=== PATIENT | male | born 1950 | race Caucasian/White ===

== ENCOUNTER 2016-12-02 19:04 | Inpatient (IN) ==
--- NOTE | 2016-12-02 19:18 | Emergency Department Note ---
Disposition Clinical Impression: Upper respiratory infection, Sepsis Disposition: Admitted As Inpatient Condition: Fair Referrals: Zeny Benitez MD [Primary Care Provider] - Forms: ED Satisfaction Letter Time of Disposition: 20:43 ([facility] obsv) URI/Sore Throat HPI - General Chief Complaint: ED Upper Respiratory Infection Stated Complaint: wet cough and low grade fever Time Seen by Provider: 12/02/16 19:10 Source: patient, EMS Mode of arrival: EMS Limitations: altered mental status, physical limitation (DD) Nursing Notes Reviewed: Yes Vital Signs Reviewed: Yes - History of Present Illness HPI Narrative: Patient sent in from [facility] report was given to us that he has been having fever cough congestion some mild hypoxia he has had a history of recurrent pneumonias in the past patient is unable to provide us with any history at this time due to his underlying health conditions Pt Subjective Complaint: fever, cough, nasal congestion Onset (ago): day(s) (1) Duration: constant, gradually worsening Improves with: nothing Worsens with: nothing If sputum, description: watery Context: sick contacts Associated symptoms: Reports: fever, nasal congestion, cough, shortness of breath. Denies: chills, voice changes, myalgias, diaphoresis, headache, rhinorrhea, sore throat, chest pain, abdominal pain, nausea, vomiting, diarrhea , dysuria Treatments prior to arrival: none - Related Data Home Medications Medication Instructions Recorded Confirmed Albuterol Sulfate [Albuterol 1 puff IH Q6H PRN 05/19/16 12/02/16 Inhaler] Acetaminophen [Tylenol] 650 mg PO Q6HR PRN 06/30/16 12/02/16 Atorvastatin [Lipitor] 20 mg PO HS 06/30/16 12/02/16 Budesonide Neb [Pulmicort Neb] 0.5 mg IH BID 06/30/16 12/02/16 Calcium Carbonate/Magnesium Ox 1 each PO BID 06/30/16 12/02/16 [Oyster Shell Calcium-Magnes Tb] Diphenhydramine HCl [Ez Nite Sleep] 25 mg PO BID PRN 06/30/16 12/02/16 Docusate Sodium [Dok] 100 mg PO BID 06/30/16 12/02/16 Fluticasone Propionate [Flovent 50 mcg IH DAILY 06/30/16 12/02/16 Diskus] Ibuprofen [Motrin] 800 mg PO Q8HR PRN 06/30/16 12/02/16 Loperamide HCl [Imodium A-D] 2 mg PO DAILY 06/30/16 12/02/16 Loratadine [Claritin] 10 mg PO DAILY 06/30/16 12/02/16 Magnesium Hydroxide [Milk of 100 ml PO DAILY 06/30/16 12/02/16 Magnesia] Megestrol Acetate [Megace] 40 mg PO DAILY 06/30/16 12/02/16 Montelukast Sodium [Singulair] 10 mg PO HS 06/30/16 12/02/16 Olopatadine HCl [Pataday] 2.5 ml OP DAILY 06/30/16 12/02/16 Polyethylene Glycol 3350 [Gavilax] 8.5 gm PO DAILY 06/30/16 12/02/16 Allergies Allergy/AdvReac Type Severity Reaction Status Date / Time cephalexin [From Keflex] Allergy Anaphylaxis Verified 08/17/16 19:58 Erythromycin Base Allergy Anaphylaxis Verified 08/17/16 19:58 peanut Allergy Anaphylaxis Verified 08/17/16 19:58 Tetracycline Allergy Anaphylaxis Verified 08/17/16 19:58 Limitations: ROS unobtainable due to patients medical condition (Except provided on face page under history due to condition) URI PMH - Past Medical History Medical history: Reports: arthritis (Osteoporosis), asthma, hyperlipidemia, peripheral artery disease, renal disease (Chronic renal insufficiency), other ( Down syndrome with profound intellectual disability, dementia) Surgical history: Reports: hip replacement (Left hip), orthopedic, other ( Metatarsal repair), other (Left mastoidectomy and tympanoplasty, chronic pain) Psychiatric history: Reports: no psych history - Social History Smoking Status: Never smoker Alcohol use: Reports: none Drug use: Reports: none Physical Exam - General Limitations: altered mental status (DD), physical limitation General appearance: alert, in no apparent distress, other (Presentation is consistent with mild Downs low-set ears) - Head Head exam: atraumatic, normocephalic, normal inspection - Eye Eye exam: Present: normal appearance, PERRL, EOMI - ENT ENT exam: normal exam, normal oropharynx, mucous membranes moist, TM's normal bilaterally, normal external ear exam - Neck Neck exam: Present: normal inspection, full ROM, trachea midline - Chest Chest inspection: Present: normal inspection, symmetric chest wall rise - Respiratory Respiratory exam: Present: normal lung sounds bilaterally, other (rhonci and wheezing failed treatment at the correction) - Cardiovascular Cardiovascular exam: Present: regular rate, normal rhythm, normal heart sounds - Abdominal Exam Abdominal exam: Present: soft, Non-Tender, normal bowel sounds - Expanded Upper Extremity Exam Shoulder exam: Present: normal inspection, full ROM Arm exam: Present: normal inspection, full ROM Elbow exam: Present: normal inspection, full ROM Forearm/Wrist exam: Present: normal inspection, full ROM Hand exam: Present: normal inspection, full ROM Vascular exam: Normal: capillary refill, radial pulse - Expanded Lower Extremity Exam Hip/Pelvis exam: Present: normal inspection, full ROM Upper leg exam: Present: normal inspection, full ROM Knee exam: Present: normal inspection, full ROM Lower leg exam: Present: normal inspection, full ROM Ankle exam: Present: normal inspection, full ROM Foot/toe exam: Present: normal inspection, full ROM Neurovascular/Tendon exam: Present: normal capillary refill, normal fine/light touch. Absent: motor deficit, sensory deficit, tendon deficit - Back Exam Back exam: Present: normal inspection, full ROM. Absent: muscle spasm - Neurological Exam Neurological exam: Present: alert, oriented X3, CN II-XII intact - Psychiatric Psychiatric exam: Present: normal affect, normal mood - Skin Skin exam: Present: warm, dry, intact, normal color Course Course Narrative: Patient was seen and examined patient upon completion of evaluation we started antibiotics on a patient has multiple labs done waiting results of the chest x- ray and labs to determine placement Vital Signs Temperature 99.8 F H 12/02/16 19:06 Pulse Rate 65 12/02/16 19:06 Respiratory Rate 18 12/02/16 19:06 Blood Pressure 154/62 12/02/16 19:06 O2 Sat by Pulse Oximetry 97 12/02/16 19:06 Temperature 99.8 F H 12/02/16 19:09 Pulse Rate 72 12/02/16 19:47 Respiratory Rate 16 12/02/16 19:47 Blood Pressure 106/58 12/02/16 19:47 O2 Sat by Pulse Oximetry 98 12/02/16 19:47 Oxygen Delivery Oxygen Delivery Room Air Upper Respiratory Infection - Lab Data Result diagrams: 12/02/16 19:25 12/02/16 19:25 Lab Results 12/02/16 12/02/16 12/02/16 Range/Units 19:25 19:25 19:25 WBC 8.0 (4.3-11.1) K/mcL RBC 4.18 L (4.19-5.50) M/mcL Hgb 14.7 (12.9-16.9) g/dL Hct 43.2 (37.5-50.1) % MCV 103.3 H (83.0-100.0) fL MCH 35.2 H (28.0-33.3) pg MCHC 34.0 (31.6-35.5) g/dL RDW 14.9 H (11.5-14.5) % Plt Count 162 (140-400) K/mcL MPV 10.1 (9.4-12.4) fL Immature Gran % 0.6 (0-4) % Seg Neutrophils % 75.3 % Lymphocytes % 10.3 % Monocytes % 12.9 % Eosinophils % 0.3 % Basophils % 0.6 % Neutrophils # 6.0 (1.6-8.9) K/mcL Lymphocytes # 0.8 (0.6-4.6) K/mcL Monocytes # 1.0 (0.0-1.3) K/mcL Eosinophils # 0.0 (0.0-0.6) K/mcL Basophils # 0.1 (0.0-0.2) K/mcL PT 12.3 H (9.4-12.1) Seconds INR 1.1 APTT 26.5 (26.0-36.0) Seconds VBG Lactic Acid (0.5-2.2) mmol/L Sodium 140 (136-145) mEq/L Potassium 4.2 (3.5-4.5) mEq/L Chloride 100 (98-109) mEq/L Carbon Dioxide 27 (19-29) mEq/L BUN 18 (8-26) mg/dL Creatinine 1.49 H (0.72-1.25) mg/dL Est GFR ( Amer) 57 L (> 60) Est GFR (Non-Af Amer) 47 L (> 60) BUN/Creatinine Ratio 12 (6-26) Glucose 100 H (70-99) mg/dL Calculated Osmolality 292 (280-300) Calcium 8.9 (8.6-10.8) mg/dL B-Natriuretic Peptide (0-100) pg/mL 12/02/16 12/02/16 Range/Units 19:25 19:25 WBC (4.3-11.1) K/mcL RBC (4.19-5.50) M/mcL Hgb (12.9-16.9) g/dL Hct (37.5-50.1) % MCV (83.0-100.0) fL MCH (28.0-33.3) pg MCHC (31.6-35.5) g/dL RDW (11.5-14.5) % Plt Count (140-400) K/mcL MPV (9.4-12.4) fL Immature Gran % (0-4) % Seg Neutrophils % % Lymphocytes % % Monocytes % % Eosinophils % % Basophils % % Neutrophils # (1.6-8.9) K/mcL Lymphocytes # (0.6-4.6) K/mcL Monocytes # (0.0-1.3) K/mcL Eosinophils # (0.0-0.6) K/mcL Basophils # (0.0-0.2) K/mcL PT (9.4-12.1) Seconds INR APTT (26.0-36.0) Seconds VBG Lactic Acid 3.6 H (0.5-2.2) mmol/L Sodium (136-145) mEq/L Potassium (3.5-4.5) mEq/L Chloride (98-109) mEq/L Carbon Dioxide (19-29) mEq/L BUN (8-26) mg/dL Creatinine (0.72-1.25) mg/dL Est GFR ( Amer) (> 60) Est GFR (Non-Af Amer) (> 60) BUN/Creatinine Ratio (6-26) Glucose (70-99) mg/dL Calculated Osmolality (280-300) Calcium (8.6-10.8) mg/dL B-Natriuretic Peptide 19 (0-100) pg/mL Critical Care Time Critical Care Time: No
[2016-12-02] MEDS ORDERED: Levofloxacin 750 MG/150 ML 750 MG/150 ML BAG IVPB STA (19:23)
[2016-12-02 19:35] LABS: Basophils # 0.1 K/mcL (0.0-0.2); Basophils % 0.6 %; Eosinophils % 0.3 %; Hematocrit 43.2 % (37.5-50.1); Hemoglobin 14.7 g/dL (12.9-16.9); Immature Granulocytes % 0.6 % (0-4); Lymphocytes # 0.8 K/mcL (0.6-4.6); Lymphocytes % 10.3 %; Mean Corpuscular Hemoglobin 35.2 pg (28.0-33.3); Mean Corpuscular Volume 103.3 fL (83.0-100.0); Mean Platelet Volume 10.1 fL (9.4-12.4); Monocytes % 12.9 %; Platelet Count 162 K/mcL (140-400); Red Blood Count 4.18 M/mcL (4.19-5.50); Red Cell Distribution Width 14.9 % (11.5-14.5); Segmented Neutrophils % 75.3 %
[2016-12-02 19:46] LABS: INR 1.1; Prothrombin Time 12.3 Seconds (9.4-12.1)
[2016-12-02 19:48] LABS: Activated Partial Thrombo Time 26.5 Seconds (26.0-36.0)
[2016-12-02 19:55] LABS: Calcium 8.9 mg/dL (8.6-10.8); Potassium 4.2 mEq/L (3.5-4.5)
[2016-12-02] MEDS ORDERED: Piperacillin/Tazobactam 3.375 GM in D5% in Water (Mini-Bag+) 100 ML IVPB ONE (20:02)
[2016-12-02] MEDS ORDERED: 0.9 % Sodium Chloride 500 ML IVC ONE ×2 (20:31→22:33)
[2016-12-02] MEDS ORDERED: 0.9 % Sodium Chloride 1,000 ML IVC SCH (20:45)
[2016-12-02] MEDS ORDERED: Ibuprofen 800 MG TABLET PO PRN (22:33)
[2016-12-02] MEDS ORDERED: Acetaminophen 325 MG TABLET PO PRN (22:33)
[2016-12-02] MEDS ORDERED: Naloxone 0.4 MG/ML INJ IVP PRN (22:33)
[2016-12-02] MEDS: 0.9 % Sodium Chloride 1,000 ML IVC SCH (23:06)
[2016-12-03] MEDS: Budesonide Neb 0.5 MG/2 ML IH SCH ×3 (01:30→22:52)
[2016-12-03] MEDS: 0.9 % Sodium Chloride 1,000 ML IVC SCH (04:11)
[2016-12-03 05:19] LABS: Basophils % 0.6 %; Eosinophils % 0.4 %; Hematocrit 37.6 % (37.5-50.1); Hemoglobin 12.5 g/dL (12.9-16.9); Immature Granulocytes % 0.6 % (0-4); Lymphocytes % 20.9 %; Mean Corpuscular HGB Conc 33.2 g/dL (31.6-35.5); Mean Corpuscular Hemoglobin 34.7 pg (28.0-33.3); Mean Corpuscular Volume 104.4 fL (83.0-100.0); Mean Platelet Volume 10.3 fL (9.4-12.4); Monocytes # 0.7 K/mcL (0.0-1.3); Monocytes % 13.5 %; Neutrophils # 3.1 K/mcL (1.6-8.9); Platelet Count 145 K/mcL (140-400); Red Cell Distribution Width 14.8 % (11.5-14.5)
[2016-12-03 05:37] LABS: INR 1.2; Prothrombin Time 13.1 Seconds (9.4-12.1)
[2016-12-03 05:40] LABS: Activated Partial Thrombo Time 22.1 Seconds (26.0-36.0)
[2016-12-03 05:44] LABS: Alanine Aminotransferase 9 Units/L (0-55); Albumin 2.2 g/dL (3.5-5.0); Albumin/Globulin Ratio 0.7 (1.1-2.2); Alkaline Phosphatase 66 Units/L (38-126); Aspartate Amino Transferase 20 Units/L (5-34); BUN/Creatinine Ratio 13 (6-26); Bilirubin,Direct 0.2 mg/dL (0.0-0.5); Bilirubin,Indirect 0.2 mg/dL (0.0-1.2); Bilirubin,Total 0.4 mg/dL (0.2-1.2); Blood Urea Nitrogen 15 mg/dL (8-26); Calcium 7.6 mg/dL (8.6-10.8); Carbon Dioxide 22 mEq/L (19-29); Chloride 109 mEq/L (98-109); Globulin 3.3 g/dL (2.4-3.5); Glucose 80 mg/dL (70-99); Osmolality,Calculated 290 (280-300); Potassium 4.2 mEq/L (3.5-4.5); Sodium 140 mEq/L (136-145); Total Protein 5.5 g/dL (6.0-8.3); eGFR For African Americans > 60 (> 60); eGFR For Non-African Americans > 60 (> 60)
[2016-12-03] MEDS: Piperacillin/Tazobactam 3.375 GM in D5% in Water (Mini-Bag+) 100 ML IVPB SCH ×3 (05:55→22:45)
[2016-12-03] MEDS ORDERED: Loratadine 10 MG TABLET PO SCH (09:00)
[2016-12-03] MEDS: Beclomethasone 40mcg MDI IH SCH (09:43)
[2016-12-03] MEDS: Levofloxacin 750 MG/150 ML 750 MG/150 ML BAG IVPB SCH (11:51)
[2016-12-03] MEDS: MOM Conc 10 ML UD.LIQ PO SCH (12:02)
--- NOTE | 2016-12-03 12:30 | Internal Med History&Physical ---
Date of Encounter: 12/03/16 Time of Encounter: 12:15 Assessment and Plan (1) Upper respiratory infection Current visit: Yes Status: Acute Suspect acute bronchitis. He has been started on Zosyn and Levaquin IV. Further workup will be done as needed. Qualifiers: URI type: unspecified URI Qualified Code(s): J06.9 - Acute upper respiratory infection, unspecified (2) Anemia Current visit: Yes Status: Chronic We will monitor CBC. Qualifiers: Anemia type: unspecified type Qualified Code(s): D64.9 - Anemia, unspecified (3) Azotemia Current visit: Yes Status: Acute IV Fluids were ordered and his creatinine has returned to normal range. We will continue to monitor labs. Internal Medicine - H&P: HPI Chief complaint: Cough and hypoxia Admitted From: Home Plans for Post Hospital Care: Home History of present illness: Mr. aPlencia is a 66 year old male who was sent from [facility] after staff reported him having cough and hypoxia. He was evaluated in emergency room with chest x-ray showing no obvious infiltrate. He did have elevated lactic acid and WBC differential showed a slight left shift. He was admitted to [facility] floor for ongoing care needs. His past respiratory history is pertinent for asthma. Smoking history is not known. 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 His last [facility] hospitalization was July 2016 with C. difficile diarrhea. Past Med Surg Social Fam HX - Past Medical History Medical history: arthritis, asthma, hyperlipidemia, peripheral artery disease, renal disease, other Psychiatric history: no psych history - Past Surgical History Surgical History: hip replacement, orthopedic, other, other - Social History Smoking Status: Never smoker Smokeless Tobacco Status: No Alcohol use: none Drug use: none Internal Medicine - H&P: Meds Albuterol Sulfate [Albuterol Inhaler] 1 puff IH Q6H PRN 05/19/16 [History] Acetaminophen [Tylenol] 650 mg PO Q6HR PRN 06/30/16 [History] Atorvastatin [Lipitor] 20 mg PO HS 06/30/16 [History] Budesonide Neb [Pulmicort Neb] 0.5 mg IH BID 06/30/16 [History] Calcium Carbonate/Magnesium Ox [Oyster Shell Calcium-Magnes Tb] 1 each PO BID [History] Diphenhydramine HCl [Ez Nite Sleep] 25 mg PO BID PRN 06/30/16 [History] Docusate Sodium [Dok] 100 mg PO BID 06/30/16 [History] Fluticasone Propionate [Flovent Diskus] 50 mcg IH DAILY 06/30/16 [History] Ibuprofen [Motrin] 800 mg PO Q8HR PRN 06/30/16 [History] Loperamide HCl [Imodium A-D] 2 mg PO DAILY 06/30/16 [History] Loratadine [Claritin] 10 mg PO DAILY 06/30/16 [History] Magnesium Hydroxide [Milk of Magnesia] 100 ml PO DAILY 06/30/16 [History] Megestrol Acetate [Megace] 40 mg PO DAILY 06/30/16 [History] Montelukast Sodium [Singulair] 10 mg PO HS 06/30/16 [History] Olopatadine HCl [Pataday] 2.5 ml OP DAILY 06/30/16 [History] Polyethylene Glycol 3350 [Gavilax] 8.5 gm PO DAILY 06/30/16 [History] Allergies cephalexin [From Keflex] Allergy (Verified 08/17/16 19:58) Anaphylaxis Erythromycin Base Allergy (Verified 08/17/16 19:58) Anaphylaxis peanut Allergy (Verified 08/17/16 19:58) Anaphylaxis Tetracycline Allergy (Verified 08/17/16 19:58) Anaphylaxis All Systems PM: A 10-system review of systems was performed and is negative for pertinent findings except as documented above in the HPI. Review of systems: Unobtainable since patient is nonverbal. Available records show diagnoses of MRDD, history of asthma, BPH, right esotropia and anemia with workup 01/18/2015 showing no factor deficiency. - Constitutional Vitals: Temp Pulse Resp BP Pulse Ox 98.0 F 63 16 106/68 96 12/03/16 11:14 12/03/16 11:14 12/03/16 11:14 12/03/16 11:14 12/03/16 11:14 Exam: Gen.: He is a well-developed overweight male lying in bed who appears in no significant distress. He is eating lunch and is nonverbal. He does not follow commands well. HEENT: Head is atraumatic and normal cephalic. Eyes: He has right esotropia with left eye dominant. He does correctly focus with his right eye when his left eye is covered. Mouth: Mucosa was not visualized well Neck: Supple and nontender. There is no thyromegaly or adenopathy noted. Heart: Regular without murmurs gallops or ectopics. Lungs: No wheezes or crackles are heard. Abdomen: Soft and nontender. No masses or guarding are noted. Extremities: There is no cyanosis of his fingernails. There is no pitting edema of the lower anterior shins. Neurologic: Mental status: He has MRDD/Down syndrome and is nonverbal. Cranial nerves: Facial movements appear symmetric. EOMI. Motor: He moves his arm well to random observation. No further formal neurologic testing is attempted. Skin: Warm and dry Internal Med - H&P Results - Labs CBC & Chem 7: 12/03/16 04:55 12/03/16 04:55 Labs: Short CBC 12/03/16 Range/Units 04:55 WBC 4.9 (4.3-11.1) K/mcL Hgb 12.5 L D (12.9-16.9) g/dL Hct 37.6 (37.5-50.1) % Plt Count 145 (140-400) K/mcL Neutrophils # 3.1 (1.6-8.9) K/mcL BMP 12/03/16 04:55 Sodium 140 Potassium 4.2 Chloride 109 Carbon Dioxide 22 BUN 15 Creatinine 1.12 Glucose 80 Calcium 7.6 L Liver Function 12/03/16 Range/Units 04:55 Total Bilirubin 0.4 (0.2-1.2) mg/dL Direct Bilirubin 0.2 (0.0-0.5) mg/dL AST 20 (5-34) Units/L ALT 9 (0-55) Units/L Alkaline Phosphatase 66 (38-126) Units/L Albumin 2.2 L (3.5-5.0) g/dL
[2016-12-03] MEDS: *HR* Enoxaparin 40 MG/0.4 ML SYRINGE SQ SCH (16:22)
[2016-12-04] MEDS: Piperacillin/Tazobactam 3.375 GM in D5% in Water (Mini-Bag+) 100 ML IVPB SCH (06:19)
[2016-12-04] MEDS: *HR* Enoxaparin 40 MG/0.4 ML SYRINGE SQ SCH (06:23)
[2016-12-04 06:42] VITALS: BP 101/68
[2016-12-04 08:04] LABS: Basophils % 0.6 %; Eosinophils # 0.1 K/mcL (0.0-0.6); Eosinophils % 1.1 %; Hemoglobin 13.6 g/dL (12.9-16.9); Immature Granulocytes % 0.2 % (0-4); Lymphocytes # 1.3 K/mcL (0.6-4.6); Lymphocytes % 27.5 %; Mean Corpuscular Hemoglobin 35.1 pg (28.0-33.3); Mean Corpuscular Volume 103.4 fL (83.0-100.0); Mean Platelet Volume 10.3 fL (9.4-12.4); Monocytes # 0.6 K/mcL (0.0-1.3); Monocytes % 13.8 %; Neutrophils # 2.6 K/mcL (1.6-8.9); Platelet Count 152 K/mcL (140-400); Red Blood Count 3.87 M/mcL (4.19-5.50); Red Cell Distribution Width 14.6 % (11.5-14.5); Segmented Neutrophils % 56.8 %
[2016-12-04 08:52] LABS: BUN/Creatinine Ratio 9 (6-26); Blood Urea Nitrogen 11 mg/dL (8-26); Calcium 8.3 mg/dL (8.6-10.8); Carbon Dioxide 24 mEq/L (19-29); Chloride 105 mEq/L (98-109); Glucose 83 mg/dL (70-99); Osmolality,Calculated 287 (280-300); Potassium 3.7 mEq/L (3.5-4.5); Sodium 139 mEq/L (136-145); eGFR For African Americans > 60 (> 60); eGFR For Non-African Americans 59 (> 60)
--- NOTE | 2016-12-04 09:26 | Discharge Summary ---
Date of Encounter: 12/04/16 Time of Encounter: 09:15 - Discharge Diagnosis (1) Upper respiratory infection Priority: Primary Status: Acute Qualifiers: URI type: unspecified URI Qualified Code(s): J06.9 - Acute upper respiratory infection, unspecified (2) Anemia Priority: Secondary Status: Chronic Qualifiers: Anemia type: unspecified type Qualified Code(s): D64.9 - Anemia, unspecified (3) Azotemia Priority: Secondary Status: Acute - Discharge Medications Prescriptions: Levofloxacin [Levaquin] 500 mg PO DAILY #2 tablet Home Medications: Albuterol Sulfate [Albuterol Inhaler] 1 puff IH Q6H PRN 05/19/16 [History] Acetaminophen [Tylenol] 650 mg PO Q6HR PRN 06/30/16 [History] Atorvastatin [Lipitor] 20 mg PO HS 06/30/16 [History] Budesonide Neb [Pulmicort Neb] 0.5 mg IH BID 06/30/16 [History] Calcium Carbonate/Magnesium Ox [Oyster Shell Calcium-Magnes Tb] 1 each PO BID [History] Diphenhydramine HCl [Ez Nite Sleep] 25 mg PO BID PRN 06/30/16 [History] Docusate Sodium [Dok] 100 mg PO BID 06/30/16 [History] Fluticasone Propionate [Flovent Diskus] 50 mcg IH DAILY 06/30/16 [History] Loperamide HCl [Imodium A-D] 2 mg PO DAILY PRN 06/30/16 [History] Magnesium Hydroxide [Milk of Magnesia] 100 ml PO DAILY 06/30/16 [History] Megestrol Acetate [Megace] 40 mg PO DAILY 06/30/16 [History] Montelukast Sodium [Singulair] 10 mg PO HS 06/30/16 [History] Olopatadine HCl [Pataday] 2.5 ml OP DAILY 06/30/16 [History] Polyethylene Glycol 3350 [Gavilax] 8.5 gm PO DAILY 06/30/16 [History] Levofloxacin [Levaquin] 500 mg PO DAILY #2 tablet 12/04/16 [Rx] Loratadine [Claritin] 10 mg PO DAILY PRN 365 Days 12/04/16 [Rx] Allergies/Adverse Reactions: Allergies cephalexin [From Keflex] Allergy (Verified 08/17/16 19:58) Anaphylaxis Erythromycin Base Allergy (Verified 08/17/16 19:58) Anaphylaxis peanut Allergy (Verified 08/17/16 19:58) Anaphylaxis Tetracycline Allergy (Verified 08/17/16 19:58) Anaphylaxis Date of admission: 12/03/16 15:28 Primary care physician: Zeny Benitez - Patient Status Disposition: Home, Self-Care Condition: Fair Overall status at discharge: patient is progressing back to baseline - Discharge Instructions Follow Up With: Zeny Benitez MD [Primary Care Provider] - 1 week - Diet and Activity Activity: resume usual activities as tolerated Diet: advance to your usual diet Hospital course: Mr. Palencia is a 66 year old male who was sent from [facility] after staff reported him having cough and hypoxia. He was evaluated in emergency room with chest x-ray showing no obvious infiltrate. He did have elevated lactic acid and WBC differential showed a slight left shift. He was admitted to [facility] floor for ongoing care needs. Initial orders were written by the emergency room physician. I saw him on December 03 and performed a history and physical. He was started on IV Zosyn and Levaquin by the emergency room physician. WBC on December 04 was normal at 4.7 K with 56.8% segs. He had overall clinical improvement. He will continue Levaquin for 2 additional days after discharge. He was given IV fluids and his BUN and creatinine improved to 11 and 1.24 on the day of discharge with estimated GFR 59. I will discontinue his Motrin to avoid interfering with renal function. There were no other new problems and on December 04 I felt he was stable for discharge back to the [facility] where he will follow Dr. Benitez. - Time Spent with Patient Total time spent providing and/or coordinating discharge services: - Constitutional Vitals: Temp Pulse Resp BP Pulse Ox 99.4 F 70 16 101/68 96 12/04/16 06:36 12/04/16 06:36 12/04/16 06:36 12/04/16 06:36 12/04/16 06:36
[2016-12-04] MEDS: Budesonide Neb 0.5 MG/2 ML IH SCH (09:27)
[2016-12-04] MEDS: Beclomethasone 40mcg MDI IH SCH (09:29)
[2016-12-04] MEDS: MOM Conc 10 ML UD.LIQ PO SCH (09:38)
[2016-12-04] MEDS: Levofloxacin 750 MG/150 ML 750 MG/150 ML BAG IVPB SCH (09:43)
== END 2016-12-04 12:15 | DRG 153 ==
LOC: INPPIK 19:04 → EMEROOPIK 19:04 → INPPIK 21:54
PROVIDERS: ADMIT Internal Medicine; ATTEND Internal Medicine

== ENCOUNTER 2018-03-24 13:36 | Observation (INO) ==
[2018-03-24 14:35] LABS: Basophils # 0.1 K/mcL (0.0-0.2); Basophils % 0.5 %; Eosinophils % 0.2 %; Hematocrit 42.1 % (37.5-50.1); Immature Granulocytes % 0.5 % (0-4); Lymphocytes % 6.7 %; Mean Corpuscular HGB Conc 33.3 g/dL (31.6-35.5); Mean Corpuscular Hemoglobin 34.5 pg (28.0-33.3); Mean Corpuscular Volume 103.7 fL (83.0-100.0); Mean Platelet Volume 10.1 fL (9.4-12.4); Monocytes # 1.3 K/mcL (0.0-1.3); Monocytes % 8.7 %; Neutrophils # 12.6 K/mcL (1.6-8.9); Platelet Count 195 K/mcL (140-400); Red Blood Count 4.06 M/mcL (4.19-5.50); Red Cell Distribution Width 15.4 % (11.5-14.5); Segmented Neutrophils % 83.4 %
--- NOTE | 2018-03-24 14:41 | Emergency Department Note ---
Disposition Clinical Impression: Upper respiratory infection Qualifiers: URI type: unspecified viral URI Qualified Code(s): J06.9 - Acute upper respiratory infection, unspecified Leukocytosis Qualifiers: Leukocytosis type: other Qualified Code(s): D72.828 - Other elevated white blood cell count Disposition: Admitted As Inpatient URI/Sore Throat HPI - General Chief Complaint: ED Asthma Stated Complaint: Possible asthma attack Time Seen by Provider: 03/24/18 13:48 Source: EMS Mode of arrival: EMS Limitations: language barrier (non-verbal), altered mental status (MRDD) Nursing Notes Reviewed: Yes Vital Signs Reviewed: Yes - History of Present Illness HPI Narrative: Patient presents to the ED via EMS from a local correction with report of possible asthma attack. 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 He was also found to be very pale was slightly low blood pressure and had been very congested. Thy report oxygen saturation was the upper 80s and low 90s on room air. He was given an albuterol treatment before EMS arrived. Patient has a history of asthma. Per EMS but she saturation was 80% on room air. They placed him on 2 L with improvement to 94- 96%. He was not any distress and they did not give any additional treatment en route to the ED. - Related Data Home Medications Medication Instructions Recorded Confirmed Albuterol Sulfate [Albuterol 1 puff IH Q6H PRN 05/19/16 03/24/18 Inhaler] Acetaminophen [Tylenol] 650 mg PO Q6HR PRN 06/30/16 03/24/18 Atorvastatin [Lipitor] 20 mg PO HS 06/30/16 03/24/18 Budesonide Neb [Pulmicort Neb] 0.5 mg IH BID 06/30/16 03/24/18 Calcium Carbonate/Magnesium Ox 1 each PO BID 06/30/16 03/24/18 [Oyster Shell Calcium-Magnes Tb] Diphenhydramine HCl [Ez Nite Sleep] 25 mg PO BID PRN 06/30/16 03/24/18 Docusate Sodium [Dok] 100 mg PO BID 06/30/16 03/24/18 Fluticasone Propionate [Flovent 50 mcg IH DAILY 06/30/16 03/24/18 Diskus] Loperamide HCl [Imodium A-D] 2 mg PO DAILY PRN 06/30/16 03/24/18 Magnesium Hydroxide [Milk of 100 ml PO DAILY 06/30/16 03/24/18 Magnesia] Megestrol Acetate [Megace] 40 mg PO DAILY 06/30/16 03/24/18 Montelukast Sodium [Singulair] 10 mg PO HS 06/30/16 03/24/18 Olopatadine HCl [Pataday] 2.5 ml OP DAILY 06/30/16 03/24/18 Polyethylene Glycol 3350 [Gavilax] 8.5 gm PO DAILY 06/30/16 03/24/18 FentaNYL PATCH [Duragesic] 50 mcg TD Q72H 01/14/17 03/24/18 Ferrous Sulfate [Iron] 325 mg PO BID 01/14/17 03/24/18 Mv-Mn/FA/Vit K/Lycop/Lut/Coq10 1 each PO DAILY 01/14/17 03/24/18 [Daily Multivitamin Capsule] Previous Rx's Medication Instructions Recorded Loratadine [Claritin] 10 mg PO DAILY PRN 365 Days 12/04/16 Allergies Allergy/AdvReac Type Severity Reaction Status Date / Time cephalexin [From Keflex] Allergy Anaphylaxis Verified 01/14/17 07:39 Erythromycin Base Allergy Anaphylaxis Verified 01/14/17 07:39 peanut Allergy Anaphylaxis Verified 01/14/17 07:39 Tetracycline Allergy Anaphylaxis Verified 01/14/17 07:39 Review of Systems: As Per HPI Limitations: ROS unobtainable due to patients medical condition URI PMH - Past Medical History Medical history: Reports: arthritis, asthma, hyperlipidemia, peripheral artery disease, renal disease, other Surgical history: Reports: hip replacement, orthopedic, other, other Psychiatric history: Reports: no psych history - Social History Smoking Status: Never smoker Alcohol use: Reports: none Drug use: Reports: none Physical Exam - General Limitations: language barrier (nonverbal), altered mental status (MRDD), other General appearance: alert, in no apparent distress - Head Head exam: atraumatic, normocephalic, normal inspection - Eye Eye exam: Present: normal appearance - ENT ENT exam: normal exam, normal oropharynx, mucous membranes moist, TM's normal bilaterally, normal external ear exam - Expanded ENT Exam Nose exam: negative: rhinorrhea Throat exam: Present: normal inspection. Absent: tonsillar erythema, tonsillomegaly - Neck Neck exam: Present: normal inspection, full ROM, trachea midline. Absent: lymphadenopathy - Chest Chest inspection: Present: normal inspection, symmetric chest wall rise - Respiratory Respiratory exam: Present: normal lung sounds bilaterally - Cardiovascular Cardiovascular exam: Present: regular rate, normal rhythm, normal heart sounds - Abdominal Exam Abdominal exam: Present: soft, Non-Tender. Absent: tenderness, distention, guarding, rebound, rigidity - Extremities Exam Extremities exam: Present: normal inspection, full ROM. Absent: tenderness, pedal edema - Back Exam Back exam: Present: normal inspection, full ROM. Absent: tenderness - Neurological Exam Neurological exam: Present: alert - Psychiatric Psychiatric exam: Present: normal affect, normal mood - Skin Skin exam: Present: warm, dry, intact, pallor Course Course Narrative: Patient is brought to the ED with report of cough, congestion and a episode of shortness of breath that they thought may been an asthma attack. On arrival here he is mildly hypoxic but not in any distress. Lungs are clear to auscultation. Will obtain chest x-ray and lab work for further evaluation. - Reevaluation(s) Reevaluation #1: Chest x-ray is normal. Laboratory studies do show a leukocytosis with high neutrophils as well as a elevated lactic acid at 2.6. Patient meets SIRS criteria but not sepsis criteria. Will obtain blood cultures and start empiric antibiotics for possible pneumonia based on symptoms. Patient will require admission. I spoke to Dr. Jean, hospitalist advertising operations manager, who is in agreement. Time: 04:17 Vital Signs Temperature 98.4 F 03/24/18 13:39 Pulse Rate 80 03/24/18 13:39 Respiratory Rate 18 03/24/18 13:39 Blood Pressure 108/57 03/24/18 13:39 O2 Sat by Pulse Oximetry 97 03/24/18 13:39 Temperature 98.7 F 03/25/18 00:04 Pulse Rate 88 03/25/18 00:04 Respiratory Rate 16 03/25/18 00:04 Blood Pressure 108/61 03/25/18 00:04 O2 Sat by Pulse Oximetry 97 03/25/18 00:04 Oxygen Delivery Oxygen Delivery Nasal Cannula Upper Respiratory Infection - Differential Diagnosis Differential Diagnosis: Likely: upper respiratory infection, other viral infection, pharyngitis, pneumonia - Medical Records Medical records reviewed: Yes I reviewed the patient's medical records. - Lab Data Lab results reviewed: Yes I reviewed the patient's lab results. Result diagrams: 03/24/18 14:20 03/24/18 14:20 Lab Results 03/24/18 03/24/18 03/24/18 Range/Units 14:20 14:20 14:20 WBC 15.1 H (4.3-11.1) K/mcL RBC 4.06 L (4.19-5.50) M/mcL Hgb 14.0 (12.9-16.9) g/dL Hct 42.1 (37.5-50.1) % MCV 103.7 H (83.0-100.0) fL MCH 34.5 H (28.0-33.3) pg MCHC 33.3 (31.6-35.5) g/dL RDW 15.4 H (11.5-14.5) % Plt Count 195 (140-400) K/mcL MPV 10.1 (9.4-12.4) fL Immature Gran % 0.5 (0-4) % Seg Neutrophils % 83.4 % Lymphocytes % 6.7 % Monocytes % 8.7 % Eosinophils % 0.2 % Basophils % 0.5 % Neutrophils # 12.6 H (1.6-8.9) K/mcL Lymphocytes # 1.0 (0.6-4.6) K/mcL Monocytes # 1.3 (0.0-1.3) K/mcL Eosinophils # 0.0 (0.0-0.6) K/mcL Basophils # 0.1 (0.0-0.2) K/mcL Sodium 139 (136-145) mEq/L Potassium 4.3 (3.5-5.1) mEq/L Chloride 104 (98-107) mEq/L Carbon Dioxide 25 (23-29) mEq/L BUN 25 H (8-23) mg/dL Creatinine 1.18 (0.70-1.30) mg/dL Est GFR ( Amer) > 60 (> 60) Est GFR (Non-Af Amer) > 60 (> 60) BUN/Creatinine Ratio 21 (6-26) Glucose 86 (70-105) mg/dL Calculated Osmolality 292 (280-300) Lactic Acid 2.6 H (0.5-2.2) mmol/L Calcium 9.0 (8.6-10.3) mg/dL - Radiology Data Radiology results reviewed: Yes I reviewed the patient's radiology results. ITS Impressions Chest X-Ray 03/24/18 13:53 IMPRESSION: No acute process. D/ / Noe Babb MD / Noe Babb MD Interpreting Provider: Noe Babb MD - Core Measures AMI Core Measures Followed: Yes
[2018-03-24 14:58] LABS: BUN/Creatinine Ratio 21 (6-26); Blood Urea Nitrogen 25 mg/dL (8-23); Carbon Dioxide 25 mEq/L (23-29); Chloride 104 mEq/L (98-107); Glucose 86 mg/dL (70-105); Osmolality,Calculated 292 (280-300); Potassium 4.3 mEq/L (3.5-5.1); Sodium 139 mEq/L (136-145); eGFR For African Americans > 60 (> 60); eGFR For Non-African Americans > 60 (> 60)
[2018-03-24] MEDS ORDERED: 0.9 % Sodium Chloride 1,000 ML IVC ONE (15:12)
[2018-03-24] MEDS ORDERED: Levofloxacin 500 MG/100 ML 500 MG/100 ML BAG IVPB ONE (15:42)
[2018-03-24] MEDS ORDERED: Naloxone 0.4 MG/ML INJ IVP PRN (15:58)
[2018-03-24] MEDS ORDERED: Acetaminophen 325 MG TABLET PO PRN (17:01)
[2018-03-24] MEDS ORDERED: Loratadine 10 MG TABLET PO PRN (17:01)
[2018-03-24] MEDS: 0.9 % Sodium Chloride 1,000 ML IVC SCH (19:58)
[2018-03-24] MEDS: Budesonide Neb 0.5 MG/2 ML IH SCH (21:34)
[2018-03-25] MEDS: 0.9 % Sodium Chloride 1,000 ML IVC SCH (04:06)
[2018-03-25] MEDS: MOM Conc 10 ML UD.LIQ PO SCH (07:52)
[2018-03-25] MEDS: Fluticasone Propionate Nasal 50 MCG/SPRAY BOTTLE NS SCH (07:52)
[2018-03-25] MEDS: Multivit/Ca/Min/Fe/FA 1 TAB TABLET PO SCH (07:53)
[2018-03-25] MEDS ORDERED: *HR* FentaNYL PATCH 50 MCG PATCH TD SCH (09:00)
[2018-03-25] MEDS: Budesonide Neb 0.5 MG/2 ML IH SCH ×2 (10:46→21:17)
--- NOTE | 2018-03-25 11:46 | Internal Med History&Physical ---
Date of Encounter: 03/25/18 Time of Encounter: 11:25 Assessment and Plan (1) Leukocytosis Current visit: Yes Status: Acute He was given IV Levaquin in emergency room. We will continue this and add lactobacillus. Qualifiers: Leukocytosis type: unspecified Qualified Code(s): D72.829 - Elevated white blood cell count, unspecified (2) Anemia Current visit: No Status: Chronic Will order anemia testing in a.m. Qualifiers: Anemia type: unspecified type Qualified Code(s): D64.9 - Anemia, unspecified (3) Azotemia Current visit: No Status: Acute Will start IV fluids and monitor renal indices. Internal Medicine - H&P: HPI Chief complaint: dyspnea Admitted From: Emergency Dept Plans for Post Hospital Care: Home History of present illness: Mr. Palencia is a 68 year old male who came to emergency room after staff at [facility] reported possible asthma attack. Available reports state he became dyspneic and developed coughing while at workshop. He was evaluated emergency room and found to have hypoxemia. The BC was elevated with left shift present. He had acute renal insufficiency and elevated lactic acid. He was admitted to [facility] floor for ongoing care needs. He is nonverbal and has MRDD and cannot communicate. Past Med Surg Social Fam HX - Past Medical History Medical history: arthritis, asthma, hyperlipidemia, peripheral artery disease, renal disease, other Psychiatric history: no psych history - Past Surgical History Surgical History: hip replacement, orthopedic, other, other - Social History Smoking Status: Never smoker Smokeless Tobacco Status: No Alcohol use: none Drug use: none - Family History Mother History Unknown: Yes Internal Medicine - H&P: Meds Albuterol Sulfate [Albuterol Inhaler] 1 puff IH Q6H PRN 05/19/16 [History] Acetaminophen [Tylenol] 650 mg PO Q6HR PRN 06/30/16 [History] Atorvastatin [Lipitor] 20 mg PO HS 06/30/16 [History] Budesonide Neb [Pulmicort Neb] 0.5 mg IH BID 06/30/16 [History] Calcium Carbonate/Magnesium Ox [Oyster Shell Calcium-Magnes Tb] 1 each PO BID [History] Diphenhydramine HCl [Ez Nite Sleep] 25 mg PO BID PRN 06/30/16 [History] Docusate Sodium [Dok] 100 mg PO BID 06/30/16 [History] Fluticasone Propionate [Flovent Diskus] 50 mcg IH DAILY 06/30/16 [History] Loperamide HCl [Imodium A-D] 2 mg PO DAILY PRN 06/30/16 [History] Magnesium Hydroxide [Milk of Magnesia] 100 ml PO DAILY 06/30/16 [History] Megestrol Acetate [Megace] 40 mg PO DAILY 06/30/16 [History] Montelukast Sodium [Singulair] 10 mg PO HS 06/30/16 [History] Olopatadine HCl [Pataday] 2.5 ml OP DAILY 06/30/16 [History] Polyethylene Glycol 3350 [Gavilax] 8.5 gm PO DAILY 06/30/16 [History] Loratadine [Claritin] 10 mg PO DAILY PRN 365 Days 12/04/16 [Rx] FentaNYL PATCH [Duragesic] 50 mcg TD Q72H 01/14/17 [History] Ferrous Sulfate [Iron] 325 mg PO BID 01/14/17 [History] Mv-Mn/FA/Vit K/Lycop/Lut/Coq10 [Daily Multivitamin Capsule] 1 each PO DAILY [History] 3 Allergy/AdvReac Type Severity Reaction Status Date / Time cephalexin [From Keflex] Allergy Anaphylaxis Verified 01/14/17 07:39 Erythromycin Base Allergy Anaphylaxis Verified 01/14/17 07:39 peanut Allergy Anaphylaxis Verified 01/14/17 07:39 Tetracycline Allergy Anaphylaxis Verified 01/14/17 07:39 All Systems PM: A 10-system review of systems was performed and is negative for pertinent findings except as documented above in the HPI. Review of systems: Gen.: His recorded weight has decreased from 64.047 kg on 12/04/2016 to 43.817 kilograms on admission now. Review of systems is otherwise unobtainable since patient is nonverbal. Available records show diagnoses of MRDD, history of asthma, BPH, right esotropia and anemia with workup 2014 and 2015 showing no factor deficiency. - Constitutional Vitals: Temp Pulse Resp BP Pulse Ox 98.1 F 70 14 124/72 95 03/25/18 10:16 03/25/18 10:16 03/25/18 10:46 03/25/18 10:16 03/25/18 10:46 Exam: Gen.: He is a well-developed male lying in bed who appears in no acute distress HEENT: Head is atraumatic and normal cephalic. Eyes: He has right esotropia. EOMI is observed on random observation. There is no scleral icterus. Mouth: He does not open his mouth for examination Neck: There is no thyromegaly or adenopathy noted. Heart: Regular without murmurs gallops or ectopics Lungs: No wheezes or crackles are heard. Abdomen: Soft and nontender. No masses or guarding are noted. Extremities: He has onychomycosis of all toenails. He has tinia pedis bilaterally. Dorsalis pedis and posttibial pulses are trace palpable bilaterally. He has swan-neck deformities with PIP hyperextension on right hand fingers. Left hand is unremarkable. Neurologic: Mental status: He is nonverbal. He does not follow commands. Cranial nerves: He has tardive dyskinesia with constant movement of his mouth and tongue. He has equal arm tone on passive range of motion of his arms and wrists. He does not move his feet and legs spontaneously. There appears to be contracture of the left knee. No further neurologic testing is attempted Skin: Warm and dry Internal Med - H&P Results - Labs CBC & Chem 7: 03/24/18 14:20 03/24/18 14:20 - VTE Reasons for not Prescribing Prophylaxis: Treatment not Indicated - Low risk for VTE
[2018-03-25] MEDS ORDERED: Levofloxacin 500 MG/100 ML 500 MG/100 ML BAG IVPB SCH (12:00)
[2018-03-25 12:40] LABS: Basophils % 0.4 %; Eosinophils # 0.1 K/mcL (0.0-0.6); Eosinophils % 1.5 %; Hematocrit 35.8 % (37.5-50.1); Immature Granulocytes % 0.3 % (0-4); Lymphocytes # 1.3 K/mcL (0.6-4.6); Lymphocytes % 18.3 %; Mean Corpuscular HGB Conc 33.5 g/dL (31.6-35.5); Mean Corpuscular Hemoglobin 34.4 pg (28.0-33.3); Mean Corpuscular Volume 102.6 fL (83.0-100.0); Mean Platelet Volume 10.1 fL (9.4-12.4); Monocytes # 0.6 K/mcL (0.0-1.3); Monocytes % 8.3 %; Neutrophils # 5.1 K/mcL (1.6-8.9); Platelet Count 188 K/mcL (140-400); Red Blood Count 3.49 M/mcL (4.19-5.50); Red Cell Distribution Width 15.2 % (11.5-14.5); Segmented Neutrophils % 71.2 %
[2018-03-25 12:45] LABS: BUN/Creatinine Ratio 16 (6-26); Blood Urea Nitrogen 14 mg/dL (8-23); Calcium 8.2 mg/dL (8.6-10.3); Carbon Dioxide 26 mEq/L (23-29); Chloride 108 mEq/L (98-107); Glucose 78 mg/dL (70-105); Osmolality,Calculated 287 (280-300); Potassium 3.7 mEq/L (3.5-5.1); Sodium 139 mEq/L (136-145); eGFR For African Americans > 60 (> 60); eGFR For Non-African Americans > 60 (> 60)
[2018-03-25] MEDS: PATADAY OP SCH (12:50)
[2018-03-25] MEDS: Lactobacillus 1 EACH CAP.SPRINK PO SCH (20:09)
[2018-03-26 06:06] LABS: Basophils % 0.4 %; Eosinophils # 0.1 K/mcL (0.0-0.6); Eosinophils % 1.3 %; Hematocrit 34.8 % (37.5-50.1); Hemoglobin 11.7 g/dL (12.9-16.9); Immature Granulocytes % 0.3 % (0-4); Lymphocytes # 1.5 K/mcL (0.6-4.6); Lymphocytes % 19.9 %; Mean Corpuscular HGB Conc 33.6 g/dL (31.6-35.5); Mean Corpuscular Hemoglobin 34.2 pg (28.0-33.3); Mean Corpuscular Volume 101.8 fL (83.0-100.0); Mean Platelet Volume 10.5 fL (9.4-12.4); Monocytes # 0.7 K/mcL (0.0-1.3); Monocytes % 9.3 %; Neutrophils # 5.1 K/mcL (1.6-8.9); Platelet Count 192 K/mcL (140-400); Red Blood Count 3.42 M/mcL (4.19-5.50); Segmented Neutrophils % 68.8 %
[2018-03-26 06:29] LABS: BUN/Creatinine Ratio 11 (6-26); Blood Urea Nitrogen 10 mg/dL (8-23); Calcium 8.3 mg/dL (8.6-10.3); Carbon Dioxide 26 mEq/L (23-29); Chloride 105 mEq/L (98-107); Glucose 81 mg/dL (70-105); Osmolality,Calculated 282 (280-300); Potassium 3.5 mEq/L (3.5-5.1); Sodium 137 mEq/L (136-145); eGFR For African Americans > 60 (> 60); eGFR For Non-African Americans > 60 (> 60)
[2018-03-26 08:34] VITALS: BP 126/71
[2018-03-26 09:18] LABS: Vitamin B12 271 pg/mL (250-1100)
[2018-03-26] MEDS: Lactobacillus 1 EACH CAP.SPRINK PO SCH (09:23)
[2018-03-26] MEDS: Multivit/Ca/Min/Fe/FA 1 TAB TABLET PO SCH (09:23)
[2018-03-26] MEDS: PATADAY OP SCH (09:24)
[2018-03-26] MEDS: MOM Conc 10 ML UD.LIQ PO SCH (09:24)
[2018-03-26 09:29] LABS: Folate > 22.3 ng/mL (3.0-16.0)
[2018-03-26] MEDS: Fluticasone Propionate Nasal 50 MCG/SPRAY BOTTLE NS SCH (09:32)
--- NOTE | 2018-03-26 09:32 | Discharge Summary ---
Orders not resulted at time of discharge: Pending orders 03/26/18 05:04 Ferritin AM 0400 Iron Profile AM 0400 Date of Encounter: 03/26/18 Time of Encounter: 09:25 - Discharge Diagnosis (1) Acute renal insufficiency Priority: Primary Status: Acute (2) Leukocytosis Priority: Secondary Status: Resolved Qualifiers: Leukocytosis type: unspecified Qualified Code(s): D72.829 - Elevated white blood cell count, unspecified (3) Anemia Priority: Secondary Status: Chronic Qualifiers: Anemia type: unspecified type Qualified Code(s): D64.9 - Anemia, unspecified Hospital course: Mr. Palencia is a 68 year old male who came to emergency room after staff at [facility] [employer] reported possible asthma attack. Available reports state he became dyspneic and developed coughing while at workshop. He was evaluated in emergency room and found to have hypoxemia. WBC was elevated with left shift present. He had acute renal insufficiency and elevated lactic acid. He was admitted to [facility] floor for ongoing care needs. Initial orders were written by emergency room physician. I saw him on March 25 and performed the history and physical. He was given IV Levaquin in emergency room. I added lactobacillus. Follow-up lab work on March 26 showed WBC normal at 7.4 with resolution of the left shift. He remained afebrile during his hospital stay. I felt he was stable for discharge back to the [facility] [employer]. He will continue with antibiotic and probiotic for 3 additional days at discharge. The etiology of his leukocytosis was not determined with certainty. IV fluids were given and azotemia resolved with BUN and creatinine improving to 10 and 0.92 respectively by day of discharge with estimated GFR greater than 60. Hemoglobin decreased to 11.7 on day of discharge. Anemia testing was ordered. B12 level was normal 271. The remainder of anemia testing is pending at time of discharge. His PCP can follow up on this. He will be discharged back to the [facility] [facility] [employer] today and follow with Dr. Benitez. - Time Spent with Patient Total time spent providing and/or coordinating discharge services: - Discharge Medications Prescriptions: Lactobacillus [Culturelle] 1 each PO BID #6 cap.sprink levoFLOXacin [Levaquin] 500 mg PO DAILY #3 tablet Home Medications: Albuterol Sulfate [Albuterol Inhaler] 1 puff IH Q6H PRN 05/19/16 [History] Acetaminophen [Tylenol] 650 mg PO Q6HR PRN 06/30/16 [History] Atorvastatin [Lipitor] 20 mg PO HS 06/30/16 [History] Budesonide Neb [Pulmicort Neb] 0.5 mg IH BID 06/30/16 [History] Calcium Carbonate/Magnesium Ox [Oyster Shell Calcium-Magnes Tb] 1 each PO BID [History] Diphenhydramine HCl [Ez Nite Sleep] 25 mg PO BID PRN 06/30/16 [History] Docusate Sodium [Dok] 100 mg PO BID 06/30/16 [History] Fluticasone Propionate [Flovent Diskus] 50 mcg IH DAILY 06/30/16 [History] Loperamide HCl [Imodium A-D] 2 mg PO DAILY PRN 06/30/16 [History] Magnesium Hydroxide [Milk of Magnesia] 100 ml PO DAILY 06/30/16 [History] Megestrol Acetate [Megace] 40 mg PO DAILY 06/30/16 [History] Montelukast Sodium [Singulair] 10 mg PO HS 06/30/16 [History] Olopatadine HCl [Pataday] 2.5 ml OP DAILY 06/30/16 [History] Polyethylene Glycol 3350 [Gavilax] 8.5 gm PO DAILY 06/30/16 [History] Loratadine [Claritin] 10 mg PO DAILY PRN 365 Days 12/04/16 [Rx] FentaNYL PATCH [Duragesic] 50 mcg TD Q72H 01/14/17 [History] Ferrous Sulfate [Iron] 325 mg PO BID 01/14/17 [History] Mv-Mn/FA/Vit K/Lycop/Lut/Coq10 [Daily Multivitamin Capsule] 1 each PO DAILY [History] Lactobacillus [Culturelle] 1 each PO BID #6 cap.sprink 03/26/18 [Rx] levoFLOXacin [Levaquin] 500 mg PO DAILY #3 tablet 03/26/18 [Rx] Allergies/Adverse Reactions: 3 Allergy/AdvReac Type Severity Reaction Status Date / Time cephalexin [From Keflex] Allergy Anaphylaxis Verified 01/14/17 07:39 Erythromycin Base Allergy Anaphylaxis Verified 01/14/17 07:39 peanut Allergy Anaphylaxis Verified 01/14/17 07:39 Tetracycline Allergy Anaphylaxis Verified 01/14/17 07:39 Date of admission: 03/24/18 16:30 Primary care physician: Zeny Benitez - Constitutional Vitals: Temp Pulse Resp BP Pulse Ox 97.5 F L 66 18 126/71 95 03/26/18 08:25 03/26/18 08:25 03/26/18 08:25 03/26/18 08:25 03/26/18 09:01 - Patient Status Disposition: Home, Self-Care Overall status at discharge: patient is progressing back to baseline - Discharge Instructions Follow Up With: Zeny Benitez MD [Primary Care Provider] - 1 week - Diet and Activity Activity: resume usual activities as tolerated Diet: advance to your usual diet - VTE Reasons for not Prescribing Prophylaxis: Treatment not Indicated - Low risk for VTE
[2018-03-26 09:51] LABS: % Iron Saturation 14 % (20-55); Ferritin 449 ng/ml (20-250); Iron 25 mcg/dL (65-175); Transferrin 129 mg/dL (203-362)
[2018-03-26] MEDS ORDERED: Levofloxacin 500 MG/100 ML 500 MG/100 ML BAG IVPB SCH (12:00)
== END 2018-03-26 12:29 | disposition home or self-care (01) ==
LOC: INPPIK 13:36 → EMEROOPIK 13:36 → INPPIK 16:49
PROVIDERS: ADMIT Internal Medicine; ATTEND Internal Medicine

== ENCOUNTER 2019-01-12 08:43 | Inpatient (IN) ==
--- NOTE | 2019-01-12 09:03 | Emergency Department Note ---
Disposition Clinical Impression: Dehydration, Hypoxia Pneumonia Qualifiers: Pneumonia type: due to unspecified organism Laterality: bilateral Lung location : unspecified part of lung Qualified Code(s): J18.9 - Pneumonia, unspecified organism Hypotension Qualifiers: Hypotension type: hypotension due to hypovolemia Qualified Code(s): I95.89 - Other hypotension; E86.1 - Hypovolemia Sepsis Qualifiers: Sepsis type: sepsis due to unspecified organism Qualified Code(s): A41.9 - Sepsis, unspecified organism Disposition: Admitted As Inpatient Condition: Serious Referrals: Zeny Benitez MD [Primary Care Provider] - Forms: ED Satisfaction Letter Time of Disposition: 10:50 General Adult HPI - General Chief complaint: ED Shortness of Breath/Dyspnea Stated complaint: low bp and low 02 sat Time Seen by Provider: 01/12/19 08:49 Source: EMS, other Mode of arrival: EMS Limitations: other Nursing Notes Reviewed: Yes Vital Signs Reviewed: Yes - History of Present Illness HPI Narrative: Patient sent from Friday [facility] where he reportedly had a low blood pressure and a low oxygen saturation. EMS was called and they found his sats to be in the 80s and his blood pressure also be in the 80s. They put him on a nonrebreather and got his sats up to the upper 80s on 100% oxygen. Arrival here in the emergency department reveals an MRDD patient to is awake and alert but not being verbal and thus history is incomplete. Pt Subjective Complaint: Hypotension and low oxygen Onset (ago): unknown Treatments Prior to Arrival: other (Oxygen therapy) - Related Data Home Medications Medication Instructions Recorded Confirmed Albuterol Sulfate [Albuterol 1 puff IH Q6H PRN 05/19/16 01/12/19 Inhaler] Acetaminophen [Tylenol] 650 mg PO Q4H PRN 06/30/16 01/12/19 Atorvastatin [Lipitor] 20 mg PO HS 06/30/16 01/12/19 Budesonide Neb [Pulmicort Neb] 0.5 mg IH BID 06/30/16 01/12/19 Calcium Carbonate/Magnesium Ox 1 each PO BID 06/30/16 01/12/19 [Oyster Shell Calcium-Magnes Tb] Diphenhydramine HCl [Ez Nite Sleep] 25 mg PO BID PRN 06/30/16 01/12/19 Docusate Sodium [Dok] 100 mg PO BID 06/30/16 01/12/19 Fluticasone Propionate [Flovent 50 mcg IH DAILY 06/30/16 01/12/19 Diskus] Loperamide HCl [Imodium A-D] 4 mg PO DAILY PRN 06/30/16 01/12/19 Magnesium Hydroxide [Milk of 30 ml PO DAILY PRN 06/30/16 01/12/19 Magnesia] Megestrol Acetate [Megace] 40 mg PO DAILY 06/30/16 01/12/19 Montelukast Sodium [Singulair] 10 mg PO HS 06/30/16 01/12/19 Olopatadine HCl [Pataday] 1 drop OP DAILY 06/30/16 01/12/19 Polyethylene Glycol 3350 [Gavilax] 8.5 gm PO DAILY 06/30/16 01/12/19 FentaNYL PATCH [Duragesic] 50 mcg TD Q72H 01/14/17 01/12/19 Ferrous Sulfate [Iron] 325 mg PO BID 01/14/17 01/12/19 Mv-Mn/FA/Vit K/Lycop/Lut/Coq10 1 each PO DAILY 01/14/17 01/12/19 [Daily Multivitamin Capsule] Albuterol Neb [AccuNeb] 0.63 mg IH Q4H PRN 01/12/19 01/12/19 Previous Rx's Medication Instructions Recorded Loratadine [Claritin] 10 mg PO DAILY PRN 365 Days 12/04/16 Allergies Allergy/AdvReac Type Severity Reaction Status Date / Time cephalexin [From Keflex] Allergy Anaphylaxis Verified 01/12/19 08:47 Erythromycin Base Allergy Anaphylaxis Verified 01/12/19 08:47 peanut Allergy Anaphylaxis Verified 01/12/19 08:47 tetracycline [Tetracycline] Allergy Anaphylaxis Verified 01/12/19 08:47 Limitations: ROS unobtainable due to patients medical condition Past Medical History - Past Medical History Source: old records reviewed, nursing notes reviewed Medical history: Reports: arthritis, asthma, hyperlipidemia, peripheral artery disease, renal disease, other Surgical history: Reports: hip replacement, orthopedic, other, other Psychiatric history: Reports: no psych history - Social History Smoking Status: Never smoker Smokeless Tobacco Status: No Alcohol use: Reports: none Drug use: Reports: none Physical Exam - General Limitations: other General appearance: alert, in no apparent distress - Head Head exam: atraumatic - Eye Eye exam: Present: PERRL. Absent: scleral icterus, conjunctival injection, periorbital swelling - ENT ENT exam: mucous membranes moist, normal external ear exam - Chest Chest inspection: Present: normal inspection, symmetric chest wall rise. Absent: tenderness - Respiratory Respiratory exam: Present: normal lung sounds bilaterally. Absent: respiratory distress, wheezes - Cardiovascular Cardiovascular exam: Present: regular rate, normal rhythm, normal heart sounds - Abdominal Exam Abdominal exam: Present: soft, Non-Tender, normal bowel sounds - Extremities Exam Extremities exam: Present: normal inspection. Absent: pedal edema - Neurological Exam Neurological exam: Present: alert - Skin Skin exam: Present: warm, dry. Absent: rash Course Course Narrative: Patient presents with obvious issues including hypotension and hypoxia. Patient is not verbal with us and so the history is challenged. Feels like he has a fever more than the documented temperature. Nothing focal on examination is found thus far. Review of old records only reveals a previous history of ER visit secondary to urinary tract infection. I am doing a short of breath workup on the patient. We will do an infectious workup as well. Current oxygen saturation is 92% so we will look at the blood gas to determine how to proceed. Patient is DNR CC. - Reevaluation(s) Reevaluation #1: Patient has a rectal temperature of about 101. Chest x-ray machine was down so I do not have that result yet. He has prior history of UTIs. I am going to go ahead and start him on Levaquin now has that would cover long or urine. We will look at the results to focus therapy further as needed. His pulse is 95 and his oxygen saturation is 96% on 10 L flow. Time: 09:45 Reevaluation #2: Chest x-ray shows bilateral pneumonia with opacification on the right greater than the left. Patient is gotten his antibiotics and 500 mL of saline so far. Now that I know it is not a failure issue and that it clearly is all pneumonia, we will give him a 2 L fluid bolus to start get his blood pressure better controlled. His kidney function are elevated so there is definitely some dehydration component to this. I have already spoken with the hospitalist who has accepted the patient for admission. Time: 10:47 - Consultations Consultation #1: Dr. Jean, hospitalist - I discussed case with the hospice. He is accepted the patient for admission. Time: 10:30 Vital Signs Temperature 99.3 F 01/12/19 08:47 Pulse Rate 84 01/12/19 08:47 Respiratory Rate 20 01/12/19 08:47 Blood Pressure 73/47 01/12/19 08:47 O2 Sat by Pulse Oximetry 89 01/12/19 08:47 Temperature 100.8 F H 01/12/19 09:45 Pulse Rate 82 01/12/19 10:28 Respiratory Rate 20 01/12/19 10:28 Blood Pressure 78/52 01/12/19 10:28 O2 Sat by Pulse Oximetry 97 01/12/19 10:28 Oxygen Delivery Oxygen Delivery Non Rebreather Mask Medical Decision Making - Medical Records Medical records reviewed: Yes I reviewed the patient's medical records. - Lab Data Lab results reviewed: Yes I reviewed the patient's lab results. Result diagrams: 01/12/19 09:25 01/12/19 09:25 Lab Results 01/12/19 01/12/19 01/12/19 Range/Units 09:23 09:25 09:25 WBC 4.2 L (4.3-11.1) K/mcL RBC 4.20 (4.19-5.50) M/mcL Hgb 15.0 (12.9-16.9) g/dL Hct 45.7 (37.5-50.1) % MCV 108.8 H (83.0-100.0) fL MCH 35.7 H (28.0-33.3) pg MCHC 32.8 (31.6-35.5) g/dL RDW 15.7 H (11.5-14.5) % Plt Count 235 (140-400) K/mcL MPV 10.1 (9.4-12.4) fL Seg Neutrophils % 76.0 % Band Neutrophils % 8.0 H (0-4) % Lymphocytes % 10.0 % Monocytes % 6.0 % Neutrophils # 3.5 (1.6-8.9) K/mcL Lymphocytes # 0.4 L (0.6-4.6) K/mcL Monocytes # 0.3 (0.0-1.3) K/mcL Platelet Estimate Normal (Normal) Macrocytosis Present A (Not Present) Sample Site R Brach ABG pH 7.45 (7.32-7.45) pH Units ABG pCO2 32 L (35-45) mmHg ABG pO2 64 L (85-104) mmHg ABG HCO3 22 (21-27) mEq/L ABG Total CO2 23 (20-26) mEq/L ABG O2 Saturation 93 L (95-98) % ABG Base Excess -1 (-2 to 3) mEq/L Bernardo Test N/A O2 Delivery Device NRB Inspired O2 10.0 (1-15=lpm [id number]=%) Sodium 141 (136-145) mEq/L Potassium 3.5 (3.5-5.1) mEq/L Chloride 105 (98-107) mEq/L Carbon Dioxide 24 (23-29) mEq/L BUN 42 H (8-23) mg/dL Creatinine 1.54 H (0.70-1.30) mg/dL Est GFR ( Amer) 55 L (> 60) Est GFR (Non-Af Amer) 45 L (> 60) BUN/Creatinine Ratio 27 H (6-26) Glucose 133 H (70-105) mg/dL Calculated Osmolality 304 H (280-300) Calcium 8.7 (8.6-10.3) mg/dL Troponin I 0.03 (< 0.04) ng/mL B-Natriuretic Peptide (Less than 100) pg/mL Urine Color (Yellow) Urine Clarity (Clear) Urine pH (5.0-8.0) pH Units Ur Specific [place] (1.010-1.025) Urine Protein (Neg-Trace) mg/dL Urine Glucose (UA) (Normal) mg/dL Urine Ketones (Negative) mg/dL Urine Blood (Negative) Urine Nitrite (Negative) Urine Bilirubin (Negative) Urine Urobilinogen (Normal) mg/dL Ur Leukocyte Esterase (Negative) Urine Microscopic RBC (0-3) per hpf Urine Microscopic WBC (0-3) per hpf Ur Squamous Epith Cells (None-Few) per lpf Urine Bacteria (None-Few) per hpf Urine Mucus (Few) Ur Culture Indicated? (NO) 01/12/19 01/12/19 Range/Units 09:25 09:40 WBC (4.3-11.1) K/mcL RBC (4.19-5.50) M/mcL Hgb (12.9-16.9) g/dL Hct (37.5-50.1) % MCV (83.0-100.0) fL MCH (28.0-33.3) pg MCHC (31.6-35.5) g/dL RDW (11.5-14.5) % Plt Count (140-400) K/mcL MPV (9.4-12.4) fL Seg Neutrophils % % Band Neutrophils % (0-4) % Lymphocytes % % Monocytes % % Neutrophils # (1.6-8.9) K/mcL Lymphocytes # (0.6-4.6) K/mcL Monocytes # (0.0-1.3) K/mcL Platelet Estimate (Normal) Macrocytosis (Not Present) Sample Site ABG pH (7.32-7.45) pH Units ABG pCO2 (35-45) mmHg ABG pO2 (85-104) mmHg ABG HCO3 (21-27) mEq/L ABG Total CO2 (20-26) mEq/L ABG O2 Saturation (95-98) % ABG Base Excess (-2 to 3) mEq/L Bernardo Test O2 Delivery Device Inspired O2 (1-15=lpm [id number]=%) Sodium (136-145) mEq/L Potassium (3.5-5.1) mEq/L Chloride (98-107) mEq/L Carbon Dioxide (23-29) mEq/L BUN (8-23) mg/dL Creatinine (0.70-1.30) mg/dL Est GFR ( Amer) (> 60) Est GFR (Non-Af Amer) (> 60) BUN/Creatinine Ratio (6-26) Glucose (70-105) mg/dL Calculated Osmolality (280-300) Calcium (8.6-10.3) mg/dL Troponin I (< 0.04) ng/mL B-Natriuretic Peptide 40 (Less than 100) pg/mL Urine Color Yellow (Yellow) Urine Clarity Clear (Clear) Urine pH 6.0 (5.0-8.0) pH Units Ur Specific [place] 1.020 (1.010-1.025) Urine Protein 30 H (Neg-Trace) mg/dL Urine Glucose (UA) Normal (Normal) mg/dL Urine Ketones Negative (Negative) mg/dL Urine Blood Moderate H (Negative) Urine Nitrite Negative (Negative) Urine Bilirubin Negative (Negative) Urine Urobilinogen Normal (Normal) mg/dL Ur Leukocyte Esterase Trace H (Negative) Urine Microscopic RBC 3-5 H (0-3) per hpf Urine Microscopic WBC 3-5 H (0-3) per hpf Ur Squamous Epith Cells Few (None-Few) per lpf Urine Bacteria Few (None-Few) per hpf Urine Mucus Few (Few) Ur Culture Indicated? YES A (NO) - Radiology Data Radiology results reviewed: Yes I reviewed the patient's radiology results. - EKG Data EKG #1 EKG attestation: Yes I reviewed and interpreted this EKG. EKG results narrative: Twelve-lead EKG performed at 8:55 AM. Ordered, reviewed and interpreted by ED physician shows sinus rhythm at a rate of 83. Normal axis. Good hour progression across the precordium. No acute ischemic changes. Intervals are within normal limits. Critical Care Time Critical Care Time: Yes Total Critical Care Time: 30 Attestation: Patient presented hypoxia and hypotension. Found to have pneumonia. Dehydration. Possible sepsis. Spent time stabilizing the patient and they have a workup done initiating treatments and consulting admitting physician and arranging admission.
[2019-01-12] MEDS ORDERED: 0.9 % Sodium Chloride 500 ML IVC ONE (09:11)
[2019-01-12 09:25] LABS: ABG Base Excess -1 mEq/L (-2 to 3); ABG HCO3 22 mEq/L (21-27); ABG Oxygen Saturation 93 % (95-98); ABG PCO2 32 mmHg (35-45); ABG PH 7.45 pH Units (7.32-7.45); ABG PO2 64 mmHg (85-104); ABG TCO2 23 mEq/L (20-26)
[2019-01-12 09:39] LABS: Hematocrit 45.7 % (37.5-50.1); Mean Corpuscular HGB Conc 32.8 g/dL (31.6-35.5); Mean Corpuscular Hemoglobin 35.7 pg (28.0-33.3); Mean Corpuscular Volume 108.8 fL (83.0-100.0); Mean Platelet Volume 10.1 fL (9.4-12.4); Monocytes # 0.3 K/mcL (0.0-1.3); Platelet Count 235 K/mcL (140-400); Red Cell Distribution Width 15.7 % (11.5-14.5)
[2019-01-12] MEDS ORDERED: Levofloxacin 750 MG/150 ML 750 MG/150 ML BAG IVPB ONE (09:43)
[2019-01-12 09:49] LABS: Bilirubin,Urine Negative (Negative); Blood,Urine Moderate (Negative); Clarity,Urine Clear (Clear); Color,Urine Yellow (Yellow); Glucose,Urine (UA) Normal (Normal); Ketones,Urine Negative (Negative); Leukocyte Esterase,Urine Trace (Negative); Nitrite,Urine Negative (Negative); Protein,Urine 30 mg/dL (Neg-Trace); Urobilinogen,Urine Normal (Normal)
[2019-01-12 09:52] LABS: Troponin I 0.03 ng/mL (< 0.04)
[2019-01-12 09:55] LABS: Bacteria,Urine Few per hpf (None-Few); Mucus,Urine Few (Few); Squamous Epithelial Cell,Urine Few per lpf (None-Few)
[2019-01-12 09:58] LABS: Lymphocytes # 0.4 K/mcL (0.6-4.6); Neutrophils # 3.5 K/mcL (1.6-8.9)
[2019-01-12 09:59] LABS: Macrocytosis Present (Not Present); Platelet Estimate Normal (Normal)
[2019-01-12 10:35] LABS: Calcium 8.7 mg/dL (8.6-10.3); Potassium 3.5 mEq/L (3.5-5.1)
[2019-01-12] MEDS ORDERED: 0.9 % Sodium Chloride 1,000 ML IVC ONE ×4 (10:43→13:50)
[2019-01-12] MEDS ORDERED: Acetaminophen 325 MG TABLET PO PRN (13:50)
[2019-01-12] MEDS ORDERED: 0.9 % Sodium Chloride 1,000 ML IVC SCH (13:50)
[2019-01-12] MEDS ORDERED: Albuterol 2.5 MG/3 ML NEBULIZER IH PRN (13:50)
[2019-01-12] MEDS ORDERED: 0.9 % Sodium Chloride 1,000 ML ONE (13:50)
[2019-01-12] MEDS ORDERED: Naloxone 0.4 MG/ML INJ IVP PRN (13:50)
--- NOTE | 2019-01-12 16:33 | Electrocardiograph Report ---
[place] [id number] Test Date: 2019-01-12 Pat Name: Anjum Palencia Department: EDP-16 Room: [facility] Gender: M [employer]: : 1950 Requested By: Camilo Jade Order Number: [id number] Reading MD: Jelena Irizarry Measurements Intervals [place] Rate: 83 P: 52 SD: 107 QRS: 70 QRSD: 97 T: 64 QT: 339 QTc: 399 Interpretive Statements Sinus rhythm Short SD interval Electronically Signed On 01-12-2019 16:32:08 EDT by Jelena Irizarry
--- NOTE | 2019-01-12 18:58 | Internal Med History&Physical ---
Date of Encounter: 01/12/19 Time of Encounter: 18:40 Assessment and Plan (1) Pneumonia Current visit: Yes Status: Acute He has been started on IV Levaquin. IV clindamycin and Lactobacillus will be added. Qualifiers: Pneumonia type: due to unspecified organism Laterality: bilateral Lung location: unspecified part of lung Qualified Code(s): J18.9 - Pneumonia, unspecified organism (2) Sepsis Current visit: Yes Status: Acute He has had fluid resuscitation in emergency room. Lactic acid has started to trend downward. IV fluids will be continued with antibiotics and probiotic. Qualifiers: Sepsis type: sepsis due to unspecified organism Qualified Code(s): A41.9 - Sepsis, unspecified organism (3) Acute renal insufficiency Current visit: No Status: Acute IV fluids have been given. Follow-up labs will be done in a.m. (4) Macrocytosis Current visit: Yes Status: Acute Present on most labs since September 2014. B12 level was borderline normal March 2018. MMA and B12 will be checked in a.m. Internal Medicine - H&P: HPI Chief complaint: Hypoxemia and hypotension Admitted From: Emergency Dept Plans for Post Hospital Care: Home History of present illness: Mr. Palencia is a 69 year old male who was brought from a local senior care after staff reported he had hypoxemia and hypotension. The emergency room report states EMS personnel found sats in the 80s and blood pressure in the 80s. He was evaluated in emergency room and found to have pneumonia with sepsis. He was administered IV fluids, IV antibiotics and admitted to [facility] floor for ongoing care needs. He has MRDD and is nonverbal. Past Med Surg Social Fam HX - Past Medical History Medical history: arthritis, asthma, hyperlipidemia, peripheral artery disease, renal disease, other Additional medical history: Down's syndrome, psoriasis Psychiatric history: no psych history - Past Surgical History Surgical History: hip replacement, orthopedic, other, other Additional surgical history: hx of hip fractures, left mastoidectomy and tympanoplasty, - Social History Smoking Status: Never smoker Smokeless Tobacco Status: No Alcohol use: none Drug use: none Internal Medicine - H&P: Meds Albuterol Sulfate [Albuterol Inhaler] 1 puff IH Q6H PRN 05/19/16 [History] Acetaminophen [Tylenol] 650 mg PO Q4H PRN 06/30/16 [History] Atorvastatin [Lipitor] 20 mg PO HS 06/30/16 [History] Budesonide Neb [Pulmicort Neb] 0.5 mg IH BID 06/30/16 [History] Calcium Carbonate/Magnesium Ox [Oyster Shell Calcium-Magnes Tb] 1 each PO BID 06/30/16 [History] Diphenhydramine HCl [Ez Nite Sleep] 25 mg PO BID PRN 06/30/16 [History] Docusate Sodium [Dok] 100 mg PO BID 06/30/16 [History] Fluticasone Propionate [Flovent Diskus] 50 mcg IH DAILY 06/30/16 [History] Loperamide HCl [Imodium A-D] 4 mg PO DAILY PRN 06/30/16 [History] Magnesium Hydroxide [Milk of Magnesia] 30 ml PO DAILY PRN 06/30/16 [History] Megestrol Acetate [Megace] 40 mg PO DAILY 06/30/16 [History] Montelukast Sodium [Singulair] 10 mg PO HS 06/30/16 [History] Olopatadine HCl [Pataday] 1 drop OP DAILY 06/30/16 [History] Polyethylene Glycol 3350 [Gavilax] 8.5 gm PO DAILY 06/30/16 [History] Loratadine [Claritin] 10 mg PO DAILY PRN 365 Days 12/04/16 [Rx] FentaNYL PATCH [Duragesic] 50 mcg TD Q72H 01/14/17 [History] Ferrous Sulfate [Iron] 325 mg PO BID 01/14/17 [History] Mv-Mn/FA/Vit K/Lycop/Lut/Coq10 [Daily Multivitamin Capsule] 1 each PO DAILY 01/14/17 [History] Albuterol Neb [AccuNeb] 0.63 mg IH Q4H PRN 01/12/19 [History] Allergy/AdvReac Type Severity Reaction Status Date / Time cephalexin [From Keflex] Allergy Anaphylaxis Verified 01/12/19 08:47 Erythromycin Base Allergy Anaphylaxis Verified 01/12/19 08:47 peanut Allergy Anaphylaxis Verified 01/12/19 08:47 tetracycline [Tetracycline] Allergy Anaphylaxis Verified 01/12/19 08:47 All Systems PM: A 10-system review of systems was performed and is negative for pertinent findin gs except as documented above in the HPI. Review of systems: Gen.: His recorded weight has fluctuated from 64.047 kg on 12/04/2016 to 43.817 kg on admission March 2018 to 58.967 kg now. Review of systems is otherwise unobtainable since patient is nonverbal. Available records show diagnoses of MRDD, history of asthma, BPH, right esotropia and anemia with workup 2014 and showing no factor deficiency. - Constitutional Vitals: Temp Pulse Resp BP Pulse Ox 99.1 F 90 18 78/48 92 01/12/19 14:30 01/12/19 14:30 01/12/19 14:30 01/12/19 14:30 01/12/19 14:35 Exam: Gen.: He is a well-developed well-nourished male with Down syndrome features lying in bed. He opens his eyes but does not follow commands HEENT: Head is atraumatic and normal cephalic. Eyes: He has right esotropia. There is no scleral icterus. EOMI. Mouth: He does not open his mouth for examination. Neck: There is no thyromegaly or adenopathy noted. Heart: Regular without murmurs gallops or ectopics Lungs: No wheezes or crackles are heard. Abdomen: Soft and nontender. No masses or guarding are noted. Extremities: He is wearing SHERIE hose which I did not remove. There is no pitting edema. There is no cyanosis of his fingernails. Neurologic: Mental status: He opens his eyes but does not follow commands. He does not move spontaneously. He is not combative. No further neurologic testing is attempted. Skin: Warm and dry Internal Med - H&P Results - Labs CBC & Chem 7: 01/12/19 09:25 01/12/19 09:25 Labs: Short CBC 01/12/19 Range/Units 09:25 WBC 4.2 L (4.3-11.1) K/mcL Hgb 15.0 (12.9-16.9) g/dL Hct 45.7 (37.5-50.1) % Plt Count 235 (140-400) K/mcL Neutrophils # 3.5 (1.6-8.9) K/mcL BMP 01/12/19 09:25 Sodium 141 Potassium 3.5 Chloride 105 Carbon Dioxide 24 BUN 42 H Creatinine 1.54 H Glucose 133 H Calcium 8.7 Cardiac Enzymes 03/12/19 Range/Units 09:25 Troponin I 0.03 (< 0.04) ng/mL Urine 01/12/19 Range/Units 09:40 Urine Color Yellow (Yellow) Urine Clarity Clear (Clear) Urine pH 6.0 (5.0-8.0) pH Units Ur Specific [place] 1.020 (1.010-1.025) Urine Protein 30 H (Neg-Trace) mg/dL Urine Glucose (UA) Normal (Normal) mg/dL - ABG Interpretation ABG results: 01/12/19 09:23 ABG pH 7.45 ABG pCO2 32 L ABG pO2 64 L ABG HCO3 22 ABG Total CO2 23 ABG O2 Saturation 93 L ABG Base Excess -1 - Impressions ITS Impressions Chest X-Ray 01/12/19 08:50 IMPRESSION: Bilateral airspace opacities, right greater than left. Findings are concerning for infection in the appropriate setting. Asymmetric edema remains a differential consideration. D/ / 01/12/2019 10:12:35 Erin Stoner MD / [facility] Interpreting Provider: Erin Stoner MD - VTE Documentation of Mechanical Device: Graduated compression elastic hosiery
[2019-01-12] MEDS: 0.45 % Sodium Chloride w/KCl 20 MEQ/1,000 ML MLS IVC SCH (19:59)
[2019-01-12] MEDS: Clindamycin 600 MG/50 ML 600 MG/50 ML IV.SOLN IVPB SCH (20:00)
[2019-01-12] MEDS: Lactobacillus 1 EACH CAP.SPRINK PO SCH ×2 (20:00→20:17)
[2019-01-12] MEDS: Budesonide Neb 0.5 MG/2 ML IH SCH (22:01)
[2019-01-13] MEDS: Clindamycin 600 MG/50 ML 600 MG/50 ML IV.SOLN IVPB SCH ×4 (04:06→19:56)
[2019-01-13 07:46] LABS: Hematocrit 39.6 % (37.5-50.1); Hemoglobin 13.3 g/dL (12.9-16.9); Mean Corpuscular HGB Conc 33.6 g/dL (31.6-35.5); Mean Corpuscular Hemoglobin 35.6 pg (28.0-33.3); Mean Corpuscular Volume 105.9 fL (83.0-100.0); Mean Platelet Volume 9.8 fL (9.4-12.4); Platelet Count 166 K/mcL (140-400); Red Blood Count 3.74 M/mcL (4.19-5.50); Red Cell Distribution Width 16.3 % (11.5-14.5)
[2019-01-13 08:15] LABS: BUN/Creatinine Ratio 25 (6-26); Blood Urea Nitrogen 31 mg/dL (8-23); Calcium 7.5 mg/dL (8.6-10.3); Carbon Dioxide 23 mEq/L (23-29); Chloride 112 mEq/L (98-107); Glucose 62 mg/dL (70-105); Magnesium 1.7 mg/dL (1.6-2.6); Osmolality,Calculated 297 (280-300); Potassium 4.8 mEq/L (3.5-5.1); Sodium 141 mEq/L (136-145); eGFR For Non-African Americans 57 (> 60)
[2019-01-13 08:18] LABS: Eosinophils # 0.5 K/mcL (0.0-0.6); Lymphocytes # 0.5 K/mcL (0.6-4.6); Macrocytosis Present (Not Present); Monocytes # 0.9 K/mcL (0.0-1.3); Neutrophils # 20.7 K/mcL (1.6-8.9)
[2019-01-13 08:19] LABS: Dohle Bodies Present (Not Present); Platelet Estimate Normal (Normal); Toxic Vacuolation Present (Not Present)
[2019-01-13] MEDS: 0.45 % Sodium Chloride w/KCl 20 MEQ/1,000 ML MLS IVC SCH (08:26)
[2019-01-13] MEDS: Fluticasone Propionate Nasal 50 MCG/SPRAY BOTTLE NS SCH (08:26)
[2019-01-13] MEDS: Lactobacillus 1 EACH CAP.SPRINK PO SCH ×2 (08:27→19:58)
[2019-01-13] MEDS ORDERED: Megestrol Acetate 400 MG/10 ML UDC PO SCH (09:00)
--- NOTE | 2019-01-13 09:23 | Internal Med Progress Note ---
Date of Encounter: 01/13/19 Time of Encounter: 09:15 - Assessment and plan (1) Pneumonia Current Visit: Yes Status: Acute Assessment and plan: January 13. Continue IV Levaquin, clindamycin, and lactobacillus. Qualifiers: Pneumonia type: due to unspecified organism Laterality: bilateral Lung location: unspecified part of lung Qualified Code(s): J18.9 - Pneumonia, unspecified organism (2) Sepsis Current Visit: Yes Status: Acute Assessment and plan: January 13. As above Qualifiers: Sepsis type: sepsis due to unspecified organism Qualified Code(s): A41.9 - Sepsis, unspecified organism (3) Acute renal insufficiency Current Visit: No Status: Acute Assessment and plan: January 13. BUN and creatinine improved at 31 and 1.25 respectively with estimated GFR 57. Continue fluid resuscitation. (4) Macrocytosis Current Visit: Yes Status: Acute Assessment and plan: January 13. B12 and MMA level pending. - Subjective Interval history: January 13. No new problems have arisen. - Constitutional Vitals: Temp Pulse Resp BP Pulse Ox 99.2 F 97 16 86/58 93 01/13/19 06:00 01/13/19 06:00 01/13/19 06:00 01/13/19 06:00 01/13/19 06:00 Exam: He is lying in bed. His eyes are open but he does not follow commands or speak. He has no peripheral inspiratory crackles or wheezing. There is midline upper airway rhonchi. No extremity edema is noted. I reviewed his medications and lab results. Internal Medicine: Result - Labs CBC & Chem 7: 01/13/19 07:35 01/13/19 07:35 Labs: Short CBC 01/12/19 01/13/19 Range/Units 09:25 07:35 WBC 4.2 L 23.0 H D (4.3-11.1) K/mcL Hgb 15.0 13.3 D (12.9-16.9) g/dL Hct 45.7 39.6 (37.5-50.1) % Plt Count 235 166 (140-400) K/mcL Neutrophils # 3.5 20.7 H (1.6-8.9) K/mcL BMP 01/12/19 01/13/19 09:25 07:35 Sodium 141 141 Potassium 3.5 4.8 D Chloride 105 112 H Carbon Dioxide 24 23 BUN 42 H 31 H Creatinine 1.54 H 1.25 Glucose 133 H 62 L Calcium 8.7 7.5 L Cardiac Enzymes 01/12/19 Range/Units 09:25 Troponin I 0.03 (< 0.04) ng/mL Urine 01/12/19 Range/Units 09:40 Urine Color Yellow (Yellow) Urine Clarity Clear (Clear) Urine pH 6.0 (5.0-8.0) pH Units Ur Specific [place] 1.020 (1.010-1.025) Urine Protein 30 H (Neg-Trace) mg/dL Urine Glucose (UA) Normal (Normal) mg/dL - ABG Interpretation ABG results: ABG ABG pH 7.45 pH Units (7.32-7.45) 01/12/19 09:23 ABG pCO2 32 mmHg (35-45) L 01/12/19 09:23 ABG pO2 64 mmHg (85-104) L 01/12/19 09:23 ABG O2 Saturation 93 % (95-98) L 01/12/19 09:23 - Impressions Impressions Chest X-Ray 01/12/19 08:50 IMPRESSION: Bilateral airspace opacities, right greater than left. Findings are concerning for infection in the appropriate setting. Asymmetric edema remains a differential consideration. D/ : / 01/12/2019 10:12:35 [facility] St[facility] MD [facility] Inter[facility] Provider: Erin Stoner MD - VTE Documentation of Mechanical Device: Graduated compression elastic hosiery Consult Discharge Plan - Plan Referrals: Zeny Benitez MD [Primary Care Provider] - 1 week
[2019-01-13 10:20] LABS: Ferritin 349 ng/mL (20-250); Iron < 10 mcg/dL (65-175); Transferrin 137 mg/dL (203-362)
[2019-01-13] MEDS: Budesonide Neb 0.5 MG/2 ML IH SCH ×2 (10:20→22:30)
[2019-01-13 22:06] LABS: Acinetobacter baumannii by PCR Not Detected (Not Detect); Candida albicans by PCR Not Detected (Not Detect); Candida glabrata by PCR Not Detected (Not Detect); Candida krusei by PCR Not Detected (Not Detect); Candida parapsilosis by PCR Not Detected (Not Detect); Candida tropicalis by PCR Not Detected (Not Detect); Enterobacter cloacae Cmplx PCR Not Detected (Not Detect); Enterobacteriaceae by PCR Not Detected (Not Detect); Enterococcus by PCR Not Detected (Not Detect); Escherichia coli by PCR Not Detected (Not Detect); Klebsiella oxytoca by PCR Not Detected (Not Detect); Klebsiella pneumoniae by PCR Not Detected (Not Detect); Proteus by PCR Not Detected (Not Detect); Pseudomonas aeruginosa by PCR Not Detected (Not Detect); Serratia marcescens by PCR Not Detected (Not Detect); Staphylococcus aureus by PCR DETECTED (Not Detect); Staphylococcus by PCR DETECTED (Not Detect); Streptococcus agalactiae(B)PCR Not Detected (Not Detect); Streptococcus by PCR Not Detected (Not Detect); Streptococcus pneumoniae PCR Not Detected (Not Detect); Streptococcus pyogenes (A) PCR Not Detected (Not Detect)
[2019-01-14] MEDS: Clindamycin 600 MG/50 ML 600 MG/50 ML IV.SOLN IVPB SCH ×3 (04:02→20:01)
[2019-01-14 05:09] LABS: Hematocrit 34.1 % (37.5-50.1); Hemoglobin 11.3 g/dL (12.9-16.9); Mean Corpuscular HGB Conc 33.1 g/dL (31.6-35.5); Mean Corpuscular Hemoglobin 35.1 pg (28.0-33.3); Mean Corpuscular Volume 105.9 fL (83.0-100.0); Mean Platelet Volume 10.5 fL (9.4-12.4); Platelet Count 148 K/mcL (140-400); Red Blood Count 3.22 M/mcL (4.19-5.50); Red Cell Distribution Width 16.3 % (11.5-14.5)
[2019-01-14 06:56] LABS: BUN/Creatinine Ratio 18 (6-26); Blood Urea Nitrogen 19 mg/dL (8-23); Calcium 7.8 mg/dL (8.6-10.3); Carbon Dioxide 22 mEq/L (23-29); Chloride 107 mEq/L (98-107); Glucose 34 mg/dL (70-105); Osmolality,Calculated 283 (280-300); Potassium 3.8 mEq/L (3.5-5.1); Sodium 137 mEq/L (136-145); eGFR For Non-African Americans > 60 (> 60)
[2019-01-14] MEDS ORDERED: *HR* Dextrose 50 % in Water (Vial) 50 ML VIAL IVP ONE (07:00)
[2019-01-14] MEDS ORDERED: *HR* Dextrose 50 % in Water (Vial) 50 ML VIAL ONE ×2 (07:03→07:07)
[2019-01-14 07:39] LABS: Neutrophils # 26.1 K/mcL (1.6-8.9)
[2019-01-14 07:40] LABS: Dohle Bodies Present (Not Present); Macrocytosis Present (Not Present)
[2019-01-14 07:41] LABS: Platelet Estimate Normal (Normal); Toxic Granulation Present (Not Present)
[2019-01-14] MEDS ORDERED: Levofloxacin 750 MG/150 ML 750 MG/150 ML BAG IVPB SCH (09:00)
[2019-01-14] MEDS: Lactobacillus 1 EACH CAP.SPRINK PO SCH ×3 (09:52→20:08)
[2019-01-14] MEDS: Fluticasone Propionate Nasal 50 MCG/SPRAY BOTTLE NS SCH (09:52)
--- NOTE | 2019-01-14 10:01 | Internal Med Progress Note ---
Date of Encounter: 01/14/19 Time of Encounter: 09:50 - Assessment and plan (1) Pneumonia Current Visit: Yes Status: Acute Assessment and plan: January 13. Continue IV Levaquin, clindamycin, and lactobacillus. January 14. Blood culture returned showing MSSA. Sensitivity is pending. Continue clindamycin and Levaquin. Qualifiers: Pneumonia type: due to unspecified organism Laterality: bilateral Lung location: unspecified part of lung Qualified Code(s): J18.9 - Pneumonia, unspecified organism (2) Sepsis Current Visit: Yes Status: Acute Assessment and plan: January 13. As above January 14. Urine culture shows gram-negative rods with final culture and sensitivity pending. Lactic acid has normalized. WBC has risen with worsening left shift however he remains afebrile. Continue Levaquin and clindamycin with lactobacillus. Recheck labs in a.m. Qualifiers: Sepsis type: sepsis due to unspecified organism Qualified Code(s): A41.9 - Sepsis, unspecified organism (3) Acute renal insufficiency Current Visit: No Status: Acute Assessment and plan: January 13. BUN and creatinine improved at 31 and 1.25 respectively with estimated GFR 57. Continue fluid resuscitation. January 14. BUN and creatinine have normalized to 19 and 1.03 respectively. Continue IV fluids. (4) Macrocytosis Current Visit: Yes Status: Acute Assessment and plan: January 13. B12 and MMA level pending. January 14. Hemoglobin has now decreased to 11.3. Anemia testing yesterday showed iron < 10, transferrin 137, and ferritin 349. B12 level was normal at 322. MMA pending. - Subjective Interval history: January 13. No new problems have arisen. January 14. No new problems have arisen. - Constitutional Vitals: Temp Pulse Resp BP Pulse Ox 99.0 F 92 24 93/54 97 01/14/19 06:37 01/14/19 06:37 01/14/19 06:37 01/14/19 06:37 01/14/19 06:37 Exam: He is resting comfortably in bed. He is wearing oxygen by mask. He does not have labored respirations. I reviewed his medications and lab results. Internal Medicine: Result - Labs CBC & Chem 7: 01/14/19 04:19 01/14/19 04:19 Labs: Short CBC 01/14/19 Range/Units 04:19 WBC 27.2 H (4.3-11.1) K/mcL Hgb 11.3 L D (12.9-16.9) g/dL Hct 34.1 L (37.5-50.1) % Plt Count 148 (140-400) K/mcL Neutrophils # 26.1 H (1.6-8.9) K/mcL BMP 01/14/19 04:19 Sodium 137 Potassium 3.8 Chloride 107 Carbon Dioxide 22 L BUN 19 Creatinine 1.03 Glucose 34 L* Calcium 7.8 L - ABG Interpretation ABG results: ABG ABG pH 7.45 pH Units (7.32-7.45) 01/12/19 09:23 ABG pCO2 32 mmHg (35-45) L 01/12/19 09:23 ABG pO2 64 mmHg (85-104) L 01/12/19 09:23 ABG O2 Saturation 93 % (95-98) L 01/12/19 09:23 - VTE Documentation of Mechanical Device: Graduated compression elastic hosiery Consult Discharge Plan - Plan Referrals: Zeny Benitez MD [Primary Care Provider] - 1 week
[2019-01-14] MEDS: Budesonide Neb 0.5 MG/2 ML IH SCH (10:28)
[2019-01-14] MEDS: 0.45 % Sodium Chloride w/KCl 20 MEQ/1,000 ML MLS IVC SCH (11:23)
[2019-01-15] MEDS: Budesonide Neb 0.5 MG/2 ML IH SCH ×2 (00:08→11:39)
[2019-01-15] MEDS: 0.45 % Sodium Chloride w/KCl 20 MEQ/1,000 ML MLS IVC SCH (02:50)
[2019-01-15] MEDS: Clindamycin 600 MG/50 ML 600 MG/50 ML IV.SOLN IVPB SCH ×2 (03:55→12:44)
[2019-01-15 06:24] LABS: Basophils # 0.1 K/mcL (0.0-0.2); Basophils % 0.4 %; Eosinophils # 0.1 K/mcL (0.0-0.6); Eosinophils % 0.4 %; Hematocrit 33.7 % (37.5-50.1); Hemoglobin 11.6 g/dL (12.9-16.9); Immature Granulocytes % 0.7 % (0-4); Lymphocytes # 0.9 K/mcL (0.6-4.6); Lymphocytes % 4.2 %; Mean Corpuscular HGB Conc 34.4 g/dL (31.6-35.5); Mean Corpuscular Hemoglobin 35.3 pg (28.0-33.3); Mean Corpuscular Volume 102.4 fL (83.0-100.0); Mean Platelet Volume 10.2 fL (9.4-12.4); Monocytes % 4.3 %; Neutrophils # 19.7 K/mcL (1.6-8.9); Platelet Count 136 K/mcL (140-400); Red Blood Count 3.29 M/mcL (4.19-5.50); Red Cell Distribution Width 15.5 % (11.5-14.5)
[2019-01-15 06:29] LABS: Alanine Aminotransferase 11 Units/L (7-52); Albumin 2.2 g/dL (3.5-5.7); Albumin/Globulin Ratio 0.7 (1.1-2.2); Alkaline Phosphatase 70 Units/L (34-104); Aspartate Amino Transferase 18 Units/L (13-39); BUN/Creatinine Ratio 13 (6-26); Bilirubin,Total 0.6 mg/dL (0.3-1.0); Blood Urea Nitrogen 12 mg/dL (8-23); Calcium 8.1 mg/dL (8.6-10.3); Carbon Dioxide 23 mEq/L (23-29); Chloride 107 mEq/L (98-107); Globulin 3.2 g/dL (2.4-3.5); Glucose 57 mg/dL (70-105); Osmolality,Calculated 289 (280-300); Potassium 3.9 mEq/L (3.5-5.1); Sodium 141 mEq/L (136-145); Total Protein 5.4 g/dL (6.4-8.9); eGFR For Non-African Americans > 60 (> 60)
[2019-01-15 07:26] LABS: Monocytes # 0.9 K/mcL (0.0-1.3)
[2019-01-15 07:29] VITALS: BP 120/70
[2019-01-15 07:42] LABS: Platelet Estimate Normal (Normal)
--- NOTE | 2019-01-15 10:00 | Discharge Summary ---
Orders not resulted at time of discharge: Pending orders 01/12/19 09:15 Culture,Blood [BC] Stat 01/12/19 09:40 Culture,Urine [RM] Stat 01/13/19 07:35 MMA (VIT B12 STATUS) AM 0400 Date of Encounter: 01/15/19 Time of Encounter: 09:53 - Discharge Diagnosis (1) Pneumonia Priority: Primary Status: Acute Qualifiers: Pneumonia type: due to unspecified organism Laterality: bilateral Lung location: unspecified part of lung Qualified Code(s): J18.9 - Pneumonia, unspecified organism (2) Sepsis Priority: Secondary Status: Acute Qualifiers: Sepsis type: sepsis due to unspecified organism Qualified Code(s): A41.9 - Sepsis, unspecified organism (3) Acute renal insufficiency Priority: Secondary Status: Resolved (4) Macrocytosis Priority: Secondary Status: Acute (5) Anemia Priority: Secondary Status: Chronic Qualifiers: Anemia type: iron deficiency Iron deficiency anemia type: unspecified iron deficiency Qualified Code(s): D50.9 - Iron deficiency anemia, unspecified Hospital course: Mr. Palencia is a 69 year old male who was brought from a local intermediate after staff reported he had hypoxemia and hypotension. The emergency room report states EMS personnel found sats in the 80s and blood pressure in the 80s. He was evaluated in emergency room and was found to have pneumonia with sepsis. He was administered IV fluids, IV antibiotics and admitted to [facility] floor for ongoing care needs. Initial orders were written by the emergency room physician. I saw him on January 12 and performed the history and physical. He was started on IV Levaquin, IV clindamycin, and lactobacillus. WBC marsha to 27.2 by January 14 but had improved to 21.9 by the following day with slight decrease in left shift. He had intermittent temperature spikes. Follow-up chest x-ray on January 14 showed near complete opacification of the right hemithorax. He was considered a poor candidate for transfer for aggressive intervention such as bronchoscopy. He had clinical improvement by January 15 and was stable for discharge to [facility] bed where he will continue to receive IV antibiotics. Azotemia resolved with BUN and creatinine decreasing to 12 and 0.91 respectively with estimated GFR greater than 60 on January 15. Anemia testing showed iron <10, transferrin 137, ferritin 349, B12 322, and folate 19.3. He will continue ferrous sulfate as at home. Hemoglobin was stable at 11.6 on day of discharge to swing bed. - Time Spent with Patient Total time spent providing and/or coordinating discharge services: - Discharge Medications Prescriptions: New 0.45 % Sodium Chloride [0.45% Sodium Chloride 1000 Ml 1000 Ml] 1,000 ml IVC .[id number] 7 Days ivbag Clindamycin 600 MG/50 ML [Cleocin Premix 600 MG/50 ML] 600 mg IVPB Q8H 7 Days bag Lactobacillus [Culturelle] 1 each PO BID cap.sprink Levofloxacin 750 MG/150 ML [Levaquin Premix 750mg/150 mL] 750 mg IVPB DAILY 7 Days bag Continue Albuterol Sulfate [Albuterol Inhaler] 1 puff IH Q6H PRN PRN Reason: Bronchospasm Atorvastatin [Lipitor] 20 mg PO HS Acetaminophen [Tylenol] 650 mg PO Q4H PRN PRN Reason: Headache Diphenhydramine HCl [Ez Nite Sleep] 25 mg PO BID PRN PRN Reason: Itching Olopatadine HCl [Pataday] 1 drop OP DAILY Calcium Carbonate/Magnesium Ox [Oyster Shell Calcium-Magnes Tb] 1 each PO BID Montelukast Sodium [Singulair] 10 mg PO HS Megestrol Acetate [Megace] 40 mg PO DAILY Polyethylene Glycol 3350 [Gavilax] 8.5 gm PO DAILY Fluticasone Propionate [Flovent Diskus] 50 mcg IH DAILY Docusate Sodium [Dok] 100 mg PO BID Magnesium Hydroxide [Milk of Magnesia] 30 ml PO DAILY PRN PRN Reason: Constipation Loperamide HCl [Imodium A-D] 4 mg PO DAILY PRN PRN Reason: Diarrhea Budesonide Neb [Pulmicort Neb] 0.5 mg IH BID FentaNYL PATCH [Duragesic] 50 mcg TD Q72H Mv-Mn/FA/Vit K/Lycop/Lut/Coq10 [Daily Multivitamin Capsule] 1 each PO DAILY Ferrous Sulfate [Iron] 325 mg PO BID Albuterol Neb [AccuNeb] 0.63 mg IH Q4H PRN PRN Reason: Shortness Of Breath Discontinued Loratadine [Claritin] 10 mg PO DAILY PRN 365 Days PRN Reason: Allergic Symptoms Home Medications: Albuterol Sulfate [Albuterol Inhaler] 1 puff IH Q6H PRN 07/17/16 [History] Acetaminophen [Tylenol] 650 mg PO Q4H PRN 06/30/16 [History] Atorvastatin [Lipitor] 20 mg PO HS 06/30/16 [History] Budesonide Neb [Pulmicort Neb] 0.5 mg IH BID 06/30/16 [History] Calcium Carbonate/Magnesium Ox [Oyster Shell Calcium-Magnes Tb] 1 each PO BID 06/30/16 [History] Diphenhydramine HCl [Ez Nite Sleep] 25 mg PO BID PRN 06/30/16 [History] Docusate Sodium [Dok] 100 mg PO BID 06/30/16 [History] Fluticasone Propionate [Flovent Diskus] 50 mcg IH DAILY 06/30/16 [History] Loperamide HCl [Imodium A-D] 4 mg PO DAILY PRN 06/30/16 [History] Magnesium Hydroxide [Milk of Magnesia] 30 ml PO DAILY PRN 06/30/16 [History] Megestrol Acetate [Megace] 40 mg PO DAILY 06/30/16 [History] Montelukast Sodium [Singulair] 10 mg PO HS 06/30/16 [History] Olopatadine HCl [Pataday] 1 drop OP DAILY 06/30/16 [History] Polyethylene Glycol 3350 [Gavilax] 8.5 gm PO DAILY 06/30/16 [History] FentaNYL PATCH [Duragesic] 50 mcg TD Q72H 01/14/17 [History] Ferrous Sulfate [Iron] 325 mg PO BID 01/14/17 [History] Mv-Mn/FA/Vit K/Lycop/Lut/Coq10 [Daily Multivitamin Capsule] 1 each PO DAILY 01/14/17 [History] Albuterol Neb [AccuNeb] 0.63 mg IH Q4H PRN 01/12/19 [History] 0.45 % Sodium Chloride [0.45% Sodium Chloride 1000 Ml 1000 Ml] 1,000 ml IVC .[id number] 7 Days ivbag 01/15/19 [Rx] Clindamycin 600 MG/50 ML [Cleocin Premix 600 MG/50 ML] 600 mg IVPB Q8H 7 Days bag 01/15/19 [Rx] Lactobacillus [Culturelle] 1 each PO BID cap.sprink 01/15/19 [Rx] Levofloxacin 750 MG/150 ML [Levaquin Premix 750mg/150 mL] 750 mg IVPB DAILY 7 Days bag 01/15/19 [Rx] Allergies/Adverse Reactions: Allergy/AdvReac Type Severity Reaction Status Date / Time cephalexin [From Keflex] Allergy Anaphylaxis Verified 01/12/19 08:47 Erythromycin Base Allergy Anaphylaxis Verified 01/12/19 08:47 peanut Allergy Anaphylaxis Verified 01/12/19 08:47 tetracycline [Tetracycline] Allergy Anaphylaxis Verified 01/12/19 08:47 Date of admission: 01/12/19 19:04 Primary care physician: Zeny Benitez - Constitutional Vitals: Temp Pulse Resp BP Pulse Ox 100.2 F H 88 16 120/70 92 01/15/19 07:26 01/15/19 07:26 01/15/19 07:26 01/15/19 07:26 01/15/19 07:26 - Patient Status Disposition: Transfer Hospital Swing Bed Condition: Serious - Discharge Instructions - VTE Documentation of Mechanical Device: Graduated compression elastic hosiery
[2019-01-15] MEDS: Fluticasone Propionate Nasal 50 MCG/SPRAY BOTTLE NS SCH (10:54)
[2019-01-15] MEDS: Lactobacillus 1 EACH CAP.SPRINK PO SCH (14:37)
== END 2019-01-15 14:52 | disposition other institution (70) | DRG 871 ==
LOC: EMEROOPIK 08:43 → INPPIK 08:43
PROVIDERS: ADMIT Internal Medicine; ATTEND Internal Medicine

== ENCOUNTER 2019-01-15 15:06 | Inpatient (IN) ==
[2019-01-15] MEDS ORDERED: Albuterol 2.5 MG/3 ML NEBULIZER IH PRN (16:36)
[2019-01-15] MEDS ORDERED: Acetaminophen 650 MG RECTAL SUPP RC PRN (16:43)
[2019-01-15] MEDS ORDERED: [UNRECOGNIZED DRUG - OTHER] IVC SCH (16:45)
[2019-01-15] MEDS ORDERED: CLINDAMYCIN IVPB SCH (16:45)
[2019-01-15] MEDS ORDERED: SODIUM CHLORIDE IVC SCH (16:45)
[2019-01-15] MEDS ORDERED: Clindamycin 600 MG/50 ML 600 MG/50 ML IV.SOLN IVPB SCH (17:00)
[2019-01-15] MEDS: *HR* FentaNYL PATCH 50 MCG PATCH TD SCH (17:44)
[2019-01-15] MEDS: Clindamycin 600 MG/50 ML 600 MG/50 ML IV.SOLN IVPB SCH (19:47)
[2019-01-15] MEDS: Budesonide Neb 0.5 MG/2 ML IH SCH (21:19)
[2019-01-16] MEDS: Clindamycin 600 MG/50 ML 600 MG/50 ML IV.SOLN IVPB SCH ×3 (03:45→19:39)
[2019-01-16] MEDS ORDERED: NON-FORMULARY MEDICATION 1 EACH EACH (Levofloxacin 750 Mg/150 Ml 750 MG) IVPB SCH (09:00)
[2019-01-16] MEDS: Fluticasone Propionate Nasal 50 MCG/SPRAY BOTTLE NS SCH (09:00)
[2019-01-16] MEDS: Levofloxacin 750 MG/150 ML 750 MG/150 ML BAG IVPB SCH (09:01)
[2019-01-16] MEDS: OLOPATADINE OP SCH (09:02)
[2019-01-16] MEDS: Budesonide Neb 0.5 MG/2 ML IH SCH ×2 (09:40→21:46)
[2019-01-16] MEDS: Lactobacillus 1 EACH CAP.SPRINK PO SCH (19:39)
[2019-01-17] MEDS: Clindamycin 600 MG/50 ML 600 MG/50 ML IV.SOLN IVPB SCH ×3 (03:50→22:34)
[2019-01-17 07:40] LABS: Basophils # 0.1 K/mcL (0.0-0.2); Basophils % 0.9 %; Eosinophils # 0.2 K/mcL (0.0-0.6); Eosinophils % 1.8 %; Hematocrit 35.3 % (37.5-50.1); Hemoglobin 12.3 g/dL (12.9-16.9); Lymphocytes # 1.5 K/mcL (0.6-4.6); Lymphocytes % 16.3 %; Mean Corpuscular HGB Conc 34.8 g/dL (31.6-35.5); Mean Corpuscular Hemoglobin 35.4 pg (28.0-33.3); Mean Corpuscular Volume 101.7 fL (83.0-100.0); Mean Platelet Volume 11.2 fL (9.4-12.4); Monocytes # 1.3 K/mcL (0.0-1.3); Neutrophils # 5.1 K/mcL (1.6-8.9); Platelet Count 157 K/mcL (140-400); Red Blood Count 3.47 M/mcL (4.19-5.50); Red Cell Distribution Width 15.4 % (11.5-14.5)
[2019-01-17 08:02] LABS: BUN/Creatinine Ratio 12 (6-26); Blood Urea Nitrogen 10 mg/dL (8-23); Calcium 7.9 mg/dL (8.6-10.3); Carbon Dioxide 23 mEq/L (23-29); Chloride 99 mEq/L (98-107); Glucose 51 mg/dL (70-105); Osmolality,Calculated 276 (280-300); Potassium 3.3 mEq/L (3.5-5.1); Sodium 135 mEq/L (136-145); eGFR For Non-African Americans > 60 (> 60)
[2019-01-17 09:06] LABS: Dohle Bodies Present (Not Present)
[2019-01-17 09:08] LABS: Anisocytosis 1+ (Not Present); Large Platelets Present (Not Present); Platelet Estimate Normal (Normal); Polychromasia 1+ (Not Present); Toxic Granulation Present (Not Present)
[2019-01-17] MEDS: Budesonide Neb 0.5 MG/2 ML IH SCH ×2 (09:16→21:57)
[2019-01-17] MEDS: Levofloxacin 750 MG/150 ML 750 MG/150 ML BAG IVPB SCH (10:30)
[2019-01-17] MEDS: Megestrol Acetate 400 MG/10 ML UDC PO SCH (10:30)
[2019-01-17] MEDS: Lactobacillus 1 EACH CAP.SPRINK PO SCH ×2 (10:30→22:34)
[2019-01-17] MEDS ORDERED: Megestrol Acetate 400 MG/10 ML UDC PO SCH (11:00)
[2019-01-17] MEDS ORDERED: Potassium Chloride Elixir 20 MEQ/15 ML UDC PO ONE (11:15)
--- NOTE | 2019-01-17 11:27 | Internal Med Progress Note ---
Date of Encounter: 01/17/19 Time of Encounter: 11:00 - Assessment and plan (1) Pneumonia Current Visit: No Status: Acute Assessment and plan: January 17. Blood culture in acute-care showed MSSA. Continue IV Levaquin and clindamycin. Qualifiers: Pneumonia type: due to unspecified organism Laterality: bilateral Lung location: unspecified part of lung Qualified Code(s): J18.9 - Pneumonia, unspecified organism (2) UTI (urinary tract infection) Current Visit: Yes Status: Acute Assessment and plan: January 17. Urine culture in acute-care showed pseudomonas aeruginosa. Continue Levaquin and lactobacillus. Qualifiers: Urinary tract infection type: site unspecified Hematuria presence: with hematuria Qualified Code(s): N39.0 - Urinary tract infection, site not specified; R31.9 - Hematuria, unspecified (3) Anemia Current Visit: No Status: Chronic Assessment and plan: January 17. Hemoglobin improved to 12.3 today. Anemia testing in acute-care showed iron < 10, transferrin 137, ferritin 349, B12 322, and folate 19.3. Start oral ferrous sulfate with ascorbic acid. Qualifiers: Anemia type: iron deficiency Iron deficiency anemia type: unspecified iron deficiency Qualified Code(s): D50.9 - Iron deficiency anemia, unspecified (4) Hypoxia Current Visit: No Status: Acute Assessment and plan: January 17. Continue oxygen by nasal cannula. - Subjective Interval history: January 17. He was hospitalized in acute-care January 12- after presenting with hypoxemia and hypotension. IV antibiotics and probiotics were started. WBC marsha to 27.2 on January 14. Chest x-ray January 14 showed opacification of the right lung field with probable pleural effusion, atelectasis, and mucus plugging. Azotemia resolved by day of discharge to swing bed. Anemia testing showed probable iron deficiency. It was felt he would benefit from ongoing IV antibiotics and he was discharged to swing bed. No new problems have arisen. - Constitutional Vitals: Temp Pulse Resp BP Pulse Ox 97.3 F L 85 16 109/71 91 01/17/19 07:36 01/17/19 07:36 01/17/19 09:16 01/17/19 07:36 01/17/19 09:16 Exam: He is resting comfortably in bed and appears in no acute distress. He is wearing oxygen by nasal cannula. I reviewed his medications and lab results. Internal Medicine: Result - Labs CBC & Chem 7: 01/17/19 07:33 01/17/19 07:33 Labs: Short CBC 01/17/19 Range/Units 07:33 WBC 8.9 D (4.3-11.1) K/mcL Hgb 12.3 L (12.9-16.9) g/dL Hct 35.3 L (37.5-50.1) % Plt Count 157 (140-400) K/mcL Neutrophils # 5.1 (1.6-8.9) K/mcL BMP 01/17/19 07:33 Sodium 135 L Potassium 3.3 L Chloride 99 Carbon Dioxide 23 BUN 10 Creatinine 0.81 Glucose 51 L Calcium 7.9 L - Impressions Impressions Chest X-Ray 01/17/19 08:00 IMPRESSION: Marked decrease in size of right pleural effusion. Small residual pleural effusion and right basilar atelectasis. Unchanged rightward mediastinal shift, suggests ongoing lobar collapse. D/ / 01/17/2019 08:10:37 Sylvie Henley MD / autumn Interpreting Provider: Sylvie Henley MD Consult Discharge Plan - Plan Referrals: NONE,PCP [Primary Care Provider] - 1 week
[2019-01-17] MEDS: Fluticasone Propionate Nasal 50 MCG/SPRAY BOTTLE NS SCH (13:58)
[2019-01-17] MEDS: OLOPATADINE OP SCH (13:59)
[2019-01-18] MEDS: Ascorbic Acid 500 MG TABLET PO SCH (06:10)
[2019-01-18] MEDS: Clindamycin 600 MG/50 ML 600 MG/50 ML IV.SOLN IVPB SCH ×3 (06:10→20:30)
[2019-01-18 06:47] LABS: Basophils # 0.1 K/mcL (0.0-0.2); Basophils % 1.1 %; Eosinophils # 0.1 K/mcL (0.0-0.6); Eosinophils % 1.3 %; Hematocrit 34.8 % (37.5-50.1); Hemoglobin 12.1 g/dL (12.9-16.9); Immature Granulocytes % 10.7 % (0-4); Lymphocytes # 1.5 K/mcL (0.6-4.6); Lymphocytes % 18.2 %; Mean Corpuscular HGB Conc 34.8 g/dL (31.6-35.5); Mean Corpuscular Hemoglobin 35.2 pg (28.0-33.3); Mean Corpuscular Volume 101.2 fL (83.0-100.0); Mean Platelet Volume 11.3 fL (9.4-12.4); Monocytes % 12.5 %; Neutrophils # 4.7 K/mcL (1.6-8.9); Platelet Count 160 K/mcL (140-400); Red Blood Count 3.44 M/mcL (4.19-5.50); Red Cell Distribution Width 15.4 % (11.5-14.5); Segmented Neutrophils % 56.2 %
[2019-01-18 07:14] LABS: BUN/Creatinine Ratio 13 (6-26); Blood Urea Nitrogen 11 mg/dL (8-23); Calcium 7.8 mg/dL (8.6-10.3); Carbon Dioxide 24 mEq/L (23-29); Chloride 99 mEq/L (98-107); Glucose 56 mg/dL (70-105); Osmolality,Calculated 277 (280-300); Potassium 3.2 mEq/L (3.5-5.1); Sodium 135 mEq/L (136-145); eGFR For Non-African Americans > 60 (> 60)
[2019-01-18 08:35] LABS: Platelet Estimate Normal (Normal)
[2019-01-18] MEDS: Levofloxacin 750 MG/150 ML 750 MG/150 ML BAG IVPB SCH (10:28)
[2019-01-18] MEDS: Budesonide Neb 0.5 MG/2 ML IH SCH ×2 (10:32→22:15)
[2019-01-18] MEDS: Lactobacillus 1 EACH CAP.SPRINK PO SCH ×2 (10:58→20:26)
[2019-01-18] MEDS: Fluticasone Propionate Nasal 50 MCG/SPRAY BOTTLE NS SCH (10:59)
[2019-01-18] MEDS: OLOPATADINE OP SCH (10:59)
[2019-01-18] MEDS: Megestrol Acetate 400 MG/10 ML UDC PO SCH (11:14)
[2019-01-18] MEDS: *HR* FentaNYL PATCH 50 MCG PATCH TD SCH (17:10)
[2019-01-18] MEDS ORDERED: 0.45 % Sodium Chloride w/KCl 20 MEQ/1,000 ML MLS IVC SCH (17:45)
--- NOTE | 2019-01-18 17:51 | Internal Med Progress Note ---
Date of Encounter: 01/18/19 Time of Encounter: 17:40 - Assessment and plan (1) Pneumonia Current Visit: No Status: Acute Assessment and plan: January 17. Blood culture in acute-care showed MSSA. Continue IV Levaquin and clindamycin. Qualifiers: Pneumonia type: due to unspecified organism Laterality: bilateral Lung location: unspecified part of lung Qualified Code(s): J18.9 - Pneumonia, unspecified organism (2) UTI (urinary tract infection) Current Visit: Yes Status: Acute Assessment and plan: January 17. Urine culture in acute-care showed pseudomonas aeruginosa. Continue Levaquin and lactobacillus. Qualifiers: Urinary tract infection type: site unspecified Hematuria presence: with hematuria Qualified Code(s): N39.0 - Urinary tract infection, site not specified; R31.9 - Hematuria, unspecified (3) Anemia Current Visit: No Status: Chronic Assessment and plan: January 17. Hemoglobin improved to 12.3 today. Anemia testing in acute-care showed iron < 10, transferrin 137, ferritin 349, B12 322, and folate 19.3. Start oral ferrous sulfate with ascorbic acid. Qualifiers: Anemia type: iron deficiency Iron deficiency anemia type: unspecified iron deficiency Qualified Code(s): D50.9 - Iron deficiency anemia, unspecified (4) Hypoxia Current Visit: No Status: Acute Assessment and plan: January 17. Continue oxygen by nasal cannula. January 18. Check room air oximetry in a.m. Anticipate discharge to [facility] tomorrow. - Subjective Interval history: January 17. He was hospitalized in acute-care January 12 after presenting with hypoxemia and hypotension. IV antibiotics and probiotics were started. WBC r ose to 27.2 on January 14. Chest x-ray January 14 showed opacification of the right lung field with probable pleural effusion, atelectasis, and mucus plugging. Azotemia resolved by day of discharge to swing bed. Anemia testing showed probable iron deficiency. It was felt he would benefit from ongoing IV antibiotics and he was discharged to swing bed. No new problems have arisen. January 18. No new problems have arisen. - Constitutional Vitals: Temp Pulse Resp BP Pulse Ox 98.1 F 86 20 108/68 95 01/18/19 10:38 01/18/19 10:38 01/18/19 10:38 01/18/19 10:38 01/18/19 10:38 Exam: He is resting comfortably in bed wearing oxygen by nasal cannula. He is not dyspneic. Lungs show no wheezes or crackles anteriorly. I reviewed his medications and lab results. Internal Medicine: Result - Labs CBC & Chem 7: 01/18/19 06:00 01/18/19 06:00 Labs: Short CBC 01/18/19 Range/Units 06:00 WBC 8.4 (4.3-11.1) K/mcL Hgb 12.1 L (12.9-16.9) g/dL Hct 34.8 L (37.5-50.1) % Plt Count 160 (140-400) K/mcL Neutrophils # 4.7 (1.6-8.9) K/mcL BMP 01/18/19 06:00 Sodium 135 L Potassium 3.2 L Chloride 99 Carbon Dioxide 24 BUN 11 Creatinine 0.87 Glucose 56 L Calcium 7.8 L Consult Discharge Plan - Plan Referrals: NONE,PCP [Primary Care Provider] - 1 week
[2019-01-19] MEDS: Clindamycin 600 MG/50 ML 600 MG/50 ML IV.SOLN IVPB SCH (04:38)
[2019-01-19] MEDS: Ascorbic Acid 500 MG TABLET PO SCH (05:45)
[2019-01-19 07:21] VITALS: BP 95/63
[2019-01-19] MEDS: Megestrol Acetate 400 MG/10 ML UDC PO SCH (09:24)
[2019-01-19] MEDS: Lactobacillus 1 EACH CAP.SPRINK PO SCH (09:30)
[2019-01-19] MEDS: OLOPATADINE OP SCH (09:31)
[2019-01-19] MEDS: Fluticasone Propionate Nasal 50 MCG/SPRAY BOTTLE NS SCH (09:31)
--- NOTE | 2019-01-19 09:50 | Discharge Summary ---
Date of Encounter: 01/19/19 Time of Encounter: 09:38 - Discharge Diagnosis (1) Pneumonia Priority: Primary Status: Acute Qualifiers: Pneumonia type: due to unspecified organism Laterality: bilateral Lung location: unspecified part of lung Qualified Code(s): J18.9 - Pneumonia, unspecified organism (2) UTI (urinary tract infection) Priority: Secondary Status: Acute Qualifiers: Urinary tract infection type: site unspecified Hematuria presence: with hematuria Qualified Code(s): N39.0 - Urinary tract infection, site not specified; R31.9 - Hematuria, unspecified (3) Anemia Priority: Secondary Status: Chronic Qualifiers: Anemia type: iron deficiency Iron deficiency anemia type: unspecified iron deficiency Qualified Code(s): D50.9 - Iron deficiency anemia, unspecified (4) Hypoxia Priority: Secondary Status: Resolved Hospital course: Mr. Palencia is a 69 year old male who was hospitalized in acute-care January 12 after presenting with hypoxemia and hypotension. IV antibiotics and probiotics were started. WBC marsha to 27.2 on January 14. Chest x-ray January 14 showed opacification of the right lung field with probable pleural effusion, atelectasis, and mucus plugging. Azotemia resolved by day of discharge to swing bed. Anemia testing showed probable iron deficiency. It was felt he would benefit from ongoing IV antibiotics and he was discharged to swing bed. He continued on IV Levaquin and clindamycin in swing bed until day of discharge. WBC normalized and left shift resolved by January 17. He will not continue with antibiotics at discharge. BUN and creatinine improved to 11 and 0.87 by January 18. Potassium decreased at 3.2 on January 18. Supplemental potassium will be given for 3 days at discharge. His PCP can monitor labs. He will continue ferrous sulfate with ascorbic acid. His PCP can monitor anemia status. Room air oximetry will be done prior to discharge. He will follow with Dr. Benitez at the [facility]. - Time Spent with Patient Total time spent providing and/or coordinating discharge services: - Discharge Medications Prescriptions: New Ascorbic Acid [Vitamin C] 500 mg PO DAILY@0630 tablet Ferrous Sulfate 325 mg PO DAILY@0630 tablet Potassium Chloride 10 meq PO BIDWM #6 tab.er.prt Continue Albuterol Sulfate [Albuterol Inhaler] 1 puff IH Q6H PRN PRN Reason: Bronchospasm Atorvastatin [Lipitor] 20 mg PO HS Acetaminophen [Tylenol] 650 mg PO Q4H PRN PRN Reason: Headache Diphenhydramine HCl [Ez Nite Sleep] 25 mg PO BID PRN PRN Reason: Itching Olopatadine HCl [Pataday] 1 drop OP DAILY Calcium Carbonate/Magnesium Ox [Oyster Shell Calcium-Magnes Tb] 1 each PO BID Montelukast Sodium [Singulair] 10 mg PO HS Polyethylene Glycol 3350 [Gavilax] 8.5 gm PO DAILY Fluticasone Propionate [Flovent Diskus] 50 mcg IH DAILY Docusate Sodium [Dok] 100 mg PO BID Magnesium Hydroxide [Milk of Magnesia] 30 ml PO DAILY PRN PRN Reason: Constipation Loperamide HCl [Imodium A-D] 4 mg PO DAILY PRN PRN Reason: Diarrhea Budesonide Neb [Pulmicort Neb] 0.5 mg IH BID FentaNYL PATCH [Duragesic] 50 mcg TD Q72H Mv-Mn/FA/Vit K/Lycop/Lut/Coq10 [Daily Multivitamin Capsule] 1 each PO DAILY Albuterol Neb [AccuNeb] 0.63 mg IH Q4H PRN PRN Reason: Shortness Of Breath Megestrol Acetate [Megace] 400 mg PO DAILY Discontinued Ferrous Sulfate [Iron] 325 mg PO BID 0.45 % Sodium Chloride [0.45% Sodium Chloride 1000 Ml 1000 Ml] 1,000 ml IVC .[id number] Days ivbag Clindamycin 600 MG/50 ML [Cleocin Premix 600 MG/50 ML] 600 mg IVPB Q8H 7 Days bag Lactobacillus [Culturelle] 1 each PO BID cap.sprink Levofloxacin 750 MG/150 ML [Levaquin Premix 750mg/150 mL] 750 mg IVPB DAILY 7 Days bag Home Medications: Albuterol Sulfate [Albuterol Inhaler] 1 puff IH Q6H PRN 05/19/16 [History] Acetaminophen [Tylenol] 650 mg PO Q4H PRN 06/30/16 [History] Atorvastatin [Lipitor] 20 mg PO HS 06/30/16 [History] Budesonide Neb [Pulmicort Neb] 0.5 mg IH BID 06/30/16 [History] Calcium Carbonate/Magnesium Ox [Oyster Shell Calcium-Magnes Tb] 1 each PO BID 06/30/16 [History] Diphenhydramine HCl [Ez Nite Sleep] 25 mg PO BID PRN 06/30/16 [History] Docusate Sodium [Dok] 100 mg PO BID 06/30/16 [History] Fluticasone Propionate [Flovent Diskus] 50 mcg IH DAILY 06/30/16 [History] Loperamide HCl [Imodium A-D] 4 mg PO DAILY PRN 06/30/16 [History] Magnesium Hydroxide [Milk of Magnesia] 30 ml PO DAILY PRN 06/30/16 [History] Montelukast Sodium [Singulair] 10 mg PO HS 06/30/16 [History] Olopatadine HCl [Pataday] 1 drop OP DAILY 06/30/16 [History] Polyethylene Glycol 3350 [Gavilax] 8.5 gm PO DAILY 06/30/16 [History] FentaNYL PATCH [Duragesic] 50 mcg TD Q72H 01/14/17 [History] Mv-Mn/FA/Vit K/Lycop/Lut/Coq10 [Daily Multivitamin Capsule] 1 each PO DAILY 01/14/17 [History] Albuterol Neb [AccuNeb] 0.63 mg IH Q4H PRN 01/12/19 [History] Megestrol Acetate [Megace] 400 mg PO DAILY 01/17/19 [History] Ascorbic Acid [Vitamin C] 500 mg PO DAILY@0630 tablet 01/19/19 [Rx] Ferrous Sulfate 325 mg PO DAILY@0630 tablet 01/19/19 [Rx] Potassium Chloride 10 meq PO BIDWM #6 tab.er.prt 01/19/19 [Rx] Allergies/Adverse Reactions: Allergy/AdvReac Type Severity Reaction Status Date / Time cephalexin [From Keflex] Allergy Anaphylaxis Verified 01/12/19 08:47 Erythromycin Base Allergy Anaphylaxis Verified 01/12/19 08:47 peanut Allergy Anaphylaxis Verified 01/12/19 08:47 tetracycline [Tetracycline] Allergy Anaphylaxis Verified 01/12/19 08:47 Date of admission: 01/15/19 15:15 Primary care physician: Zeny Benitez M.D. Consults: 01/15/19 15:27 Consult to Nutrition [CONS] Routine Comment: Consulting Provider: NUTRITION Reason for Dietary Consult: MST Score Consult to Ssn/Ssbn Weapons Equipment Operator [CONS] Routine Reason for SW Consult: Discharge Planning 01/15/19 16:28 Consult to Occupational Therapy [CONS] Routine Comment: Evaluate, develop, and implement plan of care Reason for Consult: Evaluate, develop, and implement plan of care Does patient have active BEDREST order?: No Is patient medically & hemodynamically stable?: Yes Patient assessed for mobility or mobilized this visit?: Yes Consult to Physical Therapy [CONS] Routine Comment: Evaluate, develop, and implement plan of care Reason for Consult: Evaluate, develop, and implement plan of care Does patient have active BEDREST order?: No Is patient medically & hemodynamically stable?: Yes Patient assessed for mobility or mobilized this visit?: Yes - Constitutional Vitals: Temp Pulse Resp BP Pulse Ox 98.2 F 78 18 95/63 96 01/19/19 07:20 01/19/19 07:20 01/19/19 07:20 01/19/19 07:20 01/19/19 07:20 - Patient Status Disposition: Home, Self-Care - Discharge Instructions Follow Up With: Zeny Benitez MD [Partnered Physician] - 1 week - Diet and Activity Activity: resume usual activities as tolerated Diet: advance to your usual diet
[2019-01-19] MEDS: Budesonide Neb 0.5 MG/2 ML IH SCH (10:37)
== END 2019-01-19 12:05 | disposition home or self-care (01) | DRG 194 ==
LOC: INPPIK 15:15
PROVIDERS: ADMIT Internal Medicine; ATTEND Internal Medicine

== ENCOUNTER 2019-12-30 02:53 | Inpatient (IN) ==
[2019-12-30 03:54] LABS: Bilirubin,Urine Negative (Negative); Blood,Urine Negative (Negative); Clarity,Urine Clear (Clear); Color,Urine Yellow (Yellow); Glucose,Urine (UA) Normal (Normal); Ketones,Urine Negative (Negative); Leukocyte Esterase,Urine Small (Negative); Nitrite,Urine Positive (Negative); Protein,Urine Negative (Neg-Trace); Urobilinogen,Urine Normal (Normal)
[2019-12-30 04:04] LABS: Squamous Epithelial Cell,Urine Few per lpf (None-Few); WBC,Urine 15-30 per hpf (0-3)
[2019-12-30 04:14] LABS: Hematocrit 41.6 % (37.5-50.1); Hemoglobin 13.7 g/dL (12.9-16.9); Mean Corpuscular HGB Conc 32.9 g/dL (31.6-35.5); Mean Corpuscular Hemoglobin 34.7 pg (28.0-33.3); Mean Corpuscular Volume 105.3 fL (83.0-100.0); Mean Platelet Volume 10.5 fL (9.4-12.4); Platelet Count 193 K/mcL (140-400); Red Blood Count 3.95 M/mcL (4.19-5.50); Red Cell Distribution Width 15.6 % (11.5-14.5); White Blood Count 13.5 K/mcL (4.3-11.1)
[2019-12-30 04:24] LABS: INR 1.1; Prothrombin Time 12.2 Seconds (9.4-12.1)
[2019-12-30 04:27] LABS: Amphetamine Screen,Urine Negative ng/mL (Cutoff=1000); Barbiturate Screen,Urine Negative ng/mL (Cutoff=200); Benzodiazepines Screen,Urine Negative ng/mL (Cutoff=200); Cannabinoid Screen,Urine Negative ng/mL (Cutoff = 50); Cocaine Screen,Urine Negative ng/mL (Cutoff= 300); Opiate Screen,Urine Negative ng/mL (Cutoff=300); Phencyclidine Screen,Urine Negative ng/mL (Cutoff=25)
[2019-12-30 04:27] LABS: Activated Partial Thrombo Time 26.1 Seconds (26.0-36.0)
[2019-12-30 04:31] LABS: Alanine Aminotransferase 9 Units/L (7-52); Albumin/Globulin Ratio 0.8 (1.1-2.2); Alkaline Phosphatase 65 Units/L (34-104); Aspartate Amino Transferase 15 Units/L (13-39); BUN/Creatinine Ratio 18 (6-26); Bilirubin,Direct 0.1 mg/dL (0.0-0.2); Bilirubin,Indirect 0.4 mg/dL (0.0-1.0); Bilirubin,Total 0.5 mg/dL (0.3-1.0); Blood Urea Nitrogen 26 mg/dL (8-23); Calcium 8.8 mg/dL (8.6-10.3); Carbon Dioxide 30 mEq/L (23-29); Chloride 104 mEq/L (98-107); Globulin 3.6 g/dL (2.4-3.5); Glucose 84 mg/dL (70-105); Osmolality,Calculated 298 (280-300); Potassium 4.7 mEq/L (3.5-5.1); Sodium 142 mEq/L (136-145); Total Protein 6.6 g/dL (6.4-8.9); eGFR For African Americans > 60 (> 60); eGFR For Non-African Americans 50 (> 60)
[2019-12-30 04:34] LABS: Troponin I < 0.03 ng/mL (< 0.04)
[2019-12-30] MEDS ORDERED: levoFLOXacin 750 MG/150 ML 750 MG/150 ML BAG IVPB ONE (04:34)
[2019-12-30] MEDS ORDERED: 0.9 % Sodium Chloride 1,000 ML IVC SCH (04:45)
[2019-12-30] MEDS ORDERED: Naloxone 0.4 MG/ML INJ IVP PRN ×2 (05:03→05:54)
[2019-12-30 05:11] LABS: Lymphocytes # 1.1 K/mcL (0.6-4.6); Monocytes # 0.5 K/mcL (0.0-1.3); Neutrophils # 11.9 K/mcL (1.6-8.9)
[2019-12-30] MEDS ORDERED: Saline Nasal Spray 44 ML BOTTLE NS PRN (05:54)
[2019-12-30] MEDS ORDERED: Artificial Tears SOLN 15 ML BOTTLE BOTH EYES PRN (05:54)
[2019-12-30] MEDS ORDERED: Ibuprofen 800 MG TABLET PO PRN ×2 (05:54→09:00)
[2019-12-30] MEDS ORDERED: LOPERAMIDE HCL 4 MG PO PRN (05:54)
[2019-12-30] MEDS ORDERED: MOM Conc 10 ML UD.LIQ PO PRN (05:54)
[2019-12-30] MEDS ORDERED: GuaiFENesin Liq 200 MG/10 ML UDC PO PRN (05:54)
[2019-12-30] MEDS ORDERED: Mag Hydrox/Al Hydrox/Simeth 30 ML UDC PO PRN (05:54)
[2019-12-30] MEDS ORDERED: (Olopatadine Hcl [Pataday] 1 DROP) OP PRN (05:54)
[2019-12-30] MEDS ORDERED: Ipratropium/Albuterol Neb 3 ML IH PRN (06:00)
[2019-12-30] MEDS: 0.9 % Sodium Chloride 1,000 ML IVC SCH ×3 (06:21→21:12)
[2019-12-30] MEDS ORDERED: Ketoconazole Shampoo 120 ML BOTTLE TP SCH (09:00)
[2019-12-30] MEDS: Carbamide Peroxide 150 DROP/15 ML BOTTLE BOTH EARS SCH (10:25)
[2019-12-30] MEDS: Fluticasone Propionate Nasal 50 MCG/SPRAY BOTTLE NS SCH (10:25)
[2019-12-30] MEDS: FLUTICASONE PROPIONATE TP SCH ×2 (10:26→22:17)
[2019-12-30] MEDS: METRONIDAZOLE 45 GM TP SCH ×3 (10:26→22:17)
[2019-12-30] MEDS: Loratadine 10 MG TABLET PO SCH (10:29)
[2019-12-30] MEDS: Megestrol Acetate 400 MG/10 ML UDC PO SCH (10:30)
[2019-12-30] MEDS: Multivit/Ca/Min/Fe/FA 1 TAB TABLET PO SCH (10:30)
[2019-12-30] MEDS: Budesonide Neb 0.5 MG/2 ML IH SCH ×2 (10:32→22:33)
[2019-12-30] MEDS: Ipratropium/Albuterol Neb 3 ML IH SCH ×2 (10:32→22:33)
[2019-12-30] MEDS: Clotrimazole 1% CRM 15 GM TUBE TP SCH ×2 (13:18→22:16)
[2019-12-30] MEDS: Potassium Chloride Elixir 20 MEQ/15 ML UDC PO SCH (17:46)
[2019-12-31] MEDS: levoFLOXacin 750 MG/150 ML 750 MG/150 ML BAG IVPB SCH (03:25)
[2019-12-31] MEDS: 0.9 % Sodium Chloride 1,000 ML IVC SCH ×2 (04:38→16:53)
[2019-12-31] MEDS ORDERED: Potassium Chloride Elixir 20 MEQ/15 ML UDC PO SCH (08:00)
[2019-12-31] MEDS ORDERED: cefTRIAXone 1,000 MG in 0.9 % Sodium Chloride Mini Bag 100 ML IVPB SCH (10:00)
[2019-12-31] MEDS: Loratadine 10 MG TABLET PO SCH (10:19)
[2019-12-31] MEDS: Potassium Chloride Elixir 20 MEQ/15 ML UDC PO SCH ×2 (10:19→16:56)
[2019-12-31] MEDS: Multivit/Ca/Min/Fe/FA 1 TAB TABLET PO SCH (10:20)
[2019-12-31] MEDS: FLUTICASONE PROPIONATE TP SCH ×2 (10:20→22:01)
[2019-12-31] MEDS: METRONIDAZOLE 45 GM TP SCH ×3 (10:20→22:01)
[2019-12-31] MEDS: Carbamide Peroxide 150 DROP/15 ML BOTTLE BOTH EARS SCH (10:20)
[2019-12-31] MEDS: Megestrol Acetate 400 MG/10 ML UDC PO SCH (10:20)
[2019-12-31] MEDS: Fluticasone Propionate Nasal 50 MCG/SPRAY BOTTLE NS SCH (10:20)
[2019-12-31] MEDS: Budesonide Neb 0.5 MG/2 ML IH SCH ×2 (11:32→22:17)
[2019-12-31] MEDS: Ipratropium/Albuterol Neb 3 ML IH SCH ×2 (11:33→22:17)
[2019-12-31] MEDS: Clotrimazole 1% CRM 15 GM TUBE TP SCH ×2 (15:13→22:01)
[2019-12-31 18:34] LABS: Hematocrit 37.3 % (37.5-50.1); Hemoglobin 12.7 g/dL (12.9-16.9); Mean Corpuscular Hemoglobin 35.1 pg (28.0-33.3); Mean Platelet Volume 10.9 fL (9.4-12.4); Platelet Count 155 K/mcL (140-400); Red Blood Count 3.62 M/mcL (4.19-5.50); Red Cell Distribution Width 15.6 % (11.5-14.5); White Blood Count 14.2 K/mcL (4.3-11.1)
[2020-01-01] MEDS: 0.9 % Sodium Chloride 1,000 ML IVC SCH ×3 (00:24→17:16)
[2020-01-01] MEDS: levoFLOXacin 750 MG/150 ML 750 MG/150 ML BAG IVPB SCH (04:33)
[2020-01-01 06:21] LABS: Hematocrit 35.8 % (37.5-50.1); Hemoglobin 11.9 g/dL (12.9-16.9); Mean Corpuscular HGB Conc 33.2 g/dL (31.6-35.5); Mean Corpuscular Hemoglobin 34.8 pg (28.0-33.3); Mean Corpuscular Volume 104.7 fL (83.0-100.0); Platelet Count 158 K/mcL (140-400); Red Blood Count 3.42 M/mcL (4.19-5.50); Red Cell Distribution Width 15.6 % (11.5-14.5); White Blood Count 9.9 K/mcL (4.3-11.1)
[2020-01-01 06:45] LABS: BUN/Creatinine Ratio 12 (6-26); Blood Urea Nitrogen 13 mg/dL (8-23); Calcium 8.3 mg/dL (8.6-10.3); Carbon Dioxide 25 mEq/L (23-29); Chloride 110 mEq/L (98-107); Glucose 89 mg/dL (70-105); Osmolality,Calculated 296 (280-300); Potassium 3.4 mEq/L (3.5-5.1); Sodium 143 mEq/L (136-145); eGFR For African Americans > 60 (> 60); eGFR For Non-African Americans > 60 (> 60)
[2020-01-01] MEDS: Loratadine 10 MG TABLET PO SCH (08:42)
[2020-01-01] MEDS: Multivit/Ca/Min/Fe/FA 1 TAB TABLET PO SCH (08:42)
[2020-01-01] MEDS: Potassium Chloride Elixir 20 MEQ/15 ML UDC PO SCH ×2 (08:43→17:33)
[2020-01-01] MEDS: Megestrol Acetate 400 MG/10 ML UDC PO SCH (08:44)
[2020-01-01] MEDS: Clotrimazole 1% CRM 15 GM TUBE TP SCH ×2 (08:46→21:03)
[2020-01-01] MEDS: Ipratropium/Albuterol Neb 3 ML IH SCH ×2 (09:24→21:56)
[2020-01-01] MEDS: Budesonide Neb 0.5 MG/2 ML IH SCH ×2 (09:24→21:56)
[2020-01-01] MEDS: Fluticasone Propionate Nasal 50 MCG/SPRAY BOTTLE NS SCH (10:09)
[2020-01-01] MEDS: FLUTICASONE PROPIONATE TP SCH ×2 (10:09→21:03)
[2020-01-01] MEDS: METRONIDAZOLE 45 GM TP SCH ×3 (10:10→21:03)
[2020-01-01] MEDS: *HR* Heparin 5,000 UNIT/ML VIAL SQ SCH ×2 (14:31→21:03)
[2020-01-01] MEDS: Acetaminophen 325 MG TABLET PO PRN (21:03)
[2020-01-02] MEDS: 0.9 % Sodium Chloride 1,000 ML IVC SCH ×2 (01:13→10:41)
[2020-01-02] MEDS: Acetaminophen 325 MG TABLET PO PRN (04:57)
[2020-01-02] MEDS: levoFLOXacin 750 MG/150 ML 750 MG/150 ML BAG IVPB SCH (04:58)
[2020-01-02] MEDS: *HR* Heparin 5,000 UNIT/ML VIAL SQ SCH (04:58)
[2020-01-02 07:49] LABS: Hematocrit 34.4 % (37.5-50.1); Hemoglobin 11.6 g/dL (12.9-16.9); Mean Corpuscular HGB Conc 33.7 g/dL (31.6-35.5); Mean Corpuscular Hemoglobin 34.9 pg (28.0-33.3); Mean Corpuscular Volume 103.6 fL (83.0-100.0); Mean Platelet Volume 11.1 fL (9.4-12.4); Platelet Count 164 K/mcL (140-400); Red Blood Count 3.32 M/mcL (4.19-5.50); Red Cell Distribution Width 15.1 % (11.5-14.5); White Blood Count 6.5 K/mcL (4.3-11.1)
[2020-01-02 07:54] LABS: BUN/Creatinine Ratio 9 (6-26); Blood Urea Nitrogen 10 mg/dL (8-23); Calcium 8.1 mg/dL (8.6-10.3); Carbon Dioxide 25 mEq/L (23-29); Chloride 110 mEq/L (98-107); Glucose 80 mg/dL (70-105); Osmolality,Calculated 292 (280-300); Potassium 3.8 mEq/L (3.5-5.1); Sodium 142 mEq/L (136-145); eGFR For African Americans > 60 (> 60); eGFR For Non-African Americans > 60 (> 60)
[2020-01-02] MEDS: Budesonide Neb 0.5 MG/2 ML IH SCH (08:52)
[2020-01-02] MEDS: Ipratropium/Albuterol Neb 3 ML IH SCH (08:52)
[2020-01-02 10:36] VITALS: BP 127/76
[2020-01-02] MEDS: Loratadine 10 MG TABLET PO SCH (10:37)
[2020-01-02] MEDS: Megestrol Acetate 400 MG/10 ML UDC PO SCH (10:37)
[2020-01-02] MEDS: Multivit/Ca/Min/Fe/FA 1 TAB TABLET PO SCH (10:37)
[2020-01-02] MEDS: FLUTICASONE PROPIONATE TP SCH (10:39)
[2020-01-02] MEDS: Fluticasone Propionate Nasal 50 MCG/SPRAY BOTTLE NS SCH (10:39)
[2020-01-02] MEDS: Clotrimazole 1% CRM 15 GM TUBE TP SCH (10:39)
[2020-01-02] MEDS: Potassium Chloride Elixir 20 MEQ/15 ML UDC PO SCH (10:39)
[2020-01-02] MEDS: METRONIDAZOLE 45 GM TP SCH (10:40)
== END 2020-01-02 13:10 | DRG 689 ==
LOC: EMEROOPIK 02:53 → INPPIK 02:53
PROVIDERS: ADMIT Family Medicine; ATTEND Family Medicine

== ENCOUNTER 2020-05-09 13:32 | Inpatient (IN) ==
[~2020-05-09 13:32] MED LIST: *HR* FentaNYL PATCH 50 MCG PATCH TD ONE
[2020-05-09] MEDS ORDERED: METRONIDAZOLE 45 GM TP PRN (20:50)
[2020-05-09] MEDS ORDERED: FLUTICASONE PROPIONATE TP PRN (20:50)
[2020-05-09] MEDS ORDERED: (Olopatadine Hcl [Pataday] 1 DROP) OP PRN (20:50)
[2020-05-09] MEDS ORDERED: GuaiFENesin Liq 200 MG/10 ML UDC PO PRN (20:50)
[2020-05-09] MEDS ORDERED: Saline Nasal Spray 44 ML BOTTLE NS PRN (20:50)
[2020-05-09] MEDS ORDERED: Loratadine 10 MG TABLET PO PRN (20:50)
[2020-05-09] MEDS ORDERED: [UNRECOGNIZED DRUG - OTHER] TP PRN (20:50)
[2020-05-09] MEDS ORDERED: Mag Hydrox/Al Hydrox/Simeth 30 ML UDC PO PRN (20:50)
[2020-05-09] MEDS ORDERED: CLEAR EYES NATURAL TEARS 15 ML BOTTLE OP PRN (20:50)
[2020-05-09] MEDS ORDERED: Carbamide Peroxide 150 DROP/15 ML BOTTLE BOTH EARS PRN (20:50)
[2020-05-09] MEDS ORDERED: Acetaminophen 325 MG TABLET PO PRN (20:50)
[2020-05-09] MEDS ORDERED: MOM Conc 10 ML UD.LIQ PO PRN (20:50)
[2020-05-09] MEDS: *HR* FentaNYL PATCH 50 MCG PATCH TD SCH (22:45)
[2020-05-09] MEDS: *HR* Rivaroxaban 15 MG TABLET PO SCH (22:45)
[2020-05-09] MEDS: Ketoconazole Shampoo 120 ML BOTTLE TP SCH (22:50)
[2020-05-10] MEDS ORDERED: Ipratropium/Albuterol Neb 3 ML IH PRN (04:00)
[2020-05-10] MEDS: polyethylene glycoL 3350 17 GM POWD.PACK PO SCH (10:38)
[2020-05-10] MEDS: Fluticasone Propionate Nasal 50 MCG/SPRAY BOTTLE NS SCH (10:38)
[2020-05-10] MEDS: Potassium Chloride Elixir 20 MEQ/15 ML UDC PO SCH ×2 (10:39→20:09)
[2020-05-10] MEDS: Cyanocobalamin (B-12) 1,000 MCG TABLET PO SCH (10:40)
[2020-05-10] MEDS: Multivit/Ca/Min/Fe/FA 1 TAB TABLET PO SCH (10:40)
[2020-05-10] MEDS: *HR* Rivaroxaban 15 MG TABLET PO SCH ×2 (10:41→20:09)
[2020-05-10] MEDS: Budesonide Neb 0.5 MG/2 ML IH SCH ×2 (11:29→20:39)
[2020-05-10] MEDS: Ertapenem 1,000 MG in 0.9 % Sodium Chloride Mini Bag 100 ML IVPB SCH (14:25)
[2020-05-10] MEDS: Sulfamethoxazole/Trimeth DS 1 EACH TABLET PO SCH (20:09)
[2020-05-10] MEDS: Albuterol 2.5 MG/3 ML NEBULIZER IH PRN (20:39)
[2020-05-11 07:09] LABS: Hematocrit 40.1 % (37.5-50.1); Hemoglobin 13.8 g/dL (12.9-16.9); Mean Corpuscular HGB Conc 34.4 g/dL (31.6-35.5); Mean Corpuscular Hemoglobin 35.1 pg (28.0-33.3); Mean Platelet Volume 10.6 fL (9.4-12.4); Platelet Count 279 K/mcL (140-400); Red Blood Count 3.93 M/mcL (4.19-5.50); Red Cell Distribution Width 13.9 % (11.5-14.5); White Blood Count 8.8 K/mcL (4.3-11.1)
[2020-05-11 07:53] LABS: BUN/Creatinine Ratio 20 (6-26); Blood Urea Nitrogen 22 mg/dL (8-23); Calcium 8.1 mg/dL (8.6-10.3); Carbon Dioxide 28 mEq/L (23-29); Chloride 103 mEq/L (98-107); Glucose 82 mg/dL (70-105); Osmolality,Calculated 284 (280-300); Potassium 4.1 mEq/L (3.5-5.1); Sodium 136 mEq/L (136-145); eGFR For African Americans > 60 (> 60); eGFR For Non-African Americans > 60 (> 60)
[2020-05-11] MEDS: Budesonide Neb 0.5 MG/2 ML IH SCH ×2 (08:39→20:21)
[2020-05-11] MEDS: Sulfamethoxazole/Trimeth DS 1 EACH TABLET PO SCH ×3 (10:24→23:07)
[2020-05-11] MEDS: polyethylene glycoL 3350 17 GM POWD.PACK PO SCH (10:24)
[2020-05-11] MEDS: Multivit/Ca/Min/Fe/FA 1 TAB TABLET PO SCH (10:24)
[2020-05-11] MEDS: Fluticasone Propionate Nasal 50 MCG/SPRAY BOTTLE NS SCH (10:24)
[2020-05-11] MEDS: *HR* Rivaroxaban 15 MG TABLET PO SCH ×2 (10:24→23:08)
[2020-05-11] MEDS: Potassium Chloride Elixir 20 MEQ/15 ML UDC PO SCH ×3 (10:24→23:08)
[2020-05-11] MEDS: Cyanocobalamin (B-12) 1,000 MCG TABLET PO SCH (10:24)
[2020-05-11] MEDS: Ertapenem 1,000 MG in 0.9 % Sodium Chloride Mini Bag 100 ML IVPB SCH (14:00)
[2020-05-12] MEDS: Budesonide Neb 0.5 MG/2 ML IH SCH ×2 (09:08→22:17)
[2020-05-12] MEDS: Potassium Chloride Elixir 20 MEQ/15 ML UDC PO SCH ×2 (09:45→22:34)
[2020-05-12] MEDS: polyethylene glycoL 3350 17 GM POWD.PACK PO SCH (09:45)
[2020-05-12] MEDS: Fluticasone Propionate Nasal 50 MCG/SPRAY BOTTLE NS SCH (09:46)
[2020-05-12] MEDS: Sulfamethoxazole/Trimeth DS 1 EACH TABLET PO SCH ×2 (09:46→22:33)
[2020-05-12] MEDS: Multivit/Ca/Min/Fe/FA 1 TAB TABLET PO SCH (09:47)
[2020-05-12] MEDS: *HR* Rivaroxaban 15 MG TABLET PO SCH ×2 (09:47→22:34)
[2020-05-12] MEDS: Cyanocobalamin (B-12) 1,000 MCG TABLET PO SCH (09:47)
[2020-05-12] MEDS: Ertapenem 1,000 MG in 0.9 % Sodium Chloride Mini Bag 100 ML IVPB SCH (15:13)
[2020-05-12] MEDS: *HR* FentaNYL PATCH 50 MCG PATCH TD SCH (22:34)
[2020-05-13] MEDS: Cyanocobalamin (B-12) 1,000 MCG TABLET PO SCH (08:00)
[2020-05-13] MEDS: Sulfamethoxazole/Trimeth DS 1 EACH TABLET PO SCH ×2 (08:00→21:13)
[2020-05-13] MEDS: *HR* Rivaroxaban 15 MG TABLET PO SCH ×2 (08:00→21:13)
[2020-05-13] MEDS: Fluticasone Propionate Nasal 50 MCG/SPRAY BOTTLE NS SCH (08:00)
[2020-05-13] MEDS: Multivit/Ca/Min/Fe/FA 1 TAB TABLET PO SCH (08:00)
[2020-05-13] MEDS: polyethylene glycoL 3350 17 GM POWD.PACK PO SCH (08:00)
[2020-05-13] MEDS: Potassium Chloride Elixir 20 MEQ/15 ML UDC PO SCH ×2 (08:01→21:14)
[2020-05-13] MEDS: Budesonide Neb 0.5 MG/2 ML IH SCH ×2 (08:55→20:53)
[2020-05-13] MEDS: Ertapenem 1,000 MG in 0.9 % Sodium Chloride Mini Bag 100 ML IVPB SCH (13:33)
[2020-05-13] MEDS: Ketoconazole Shampoo 120 ML BOTTLE TP SCH (21:14)
[2020-05-14] MEDS: Budesonide Neb 0.5 MG/2 ML IH SCH ×2 (09:52→21:17)
[2020-05-14] MEDS: Fluticasone Propionate Nasal 50 MCG/SPRAY BOTTLE NS SCH (10:38)
[2020-05-14] MEDS: *HR* Rivaroxaban 15 MG TABLET PO SCH ×3 (10:46→20:50)
[2020-05-14] MEDS: polyethylene glycoL 3350 17 GM POWD.PACK PO SCH (10:46)
[2020-05-14] MEDS: Potassium Chloride Elixir 20 MEQ/15 ML UDC PO SCH ×2 (10:46→20:50)
[2020-05-14] MEDS: Sulfamethoxazole/Trimeth DS 1 EACH TABLET PO SCH ×2 (10:46→20:50)
[2020-05-14] MEDS: Cyanocobalamin (B-12) 1,000 MCG TABLET PO SCH (10:46)
[2020-05-14] MEDS: Multivit/Ca/Min/Fe/FA 1 TAB TABLET PO SCH (10:46)
[2020-05-14] MEDS: Ertapenem 1,000 MG in 0.9 % Sodium Chloride Mini Bag 100 ML IVPB SCH (13:48)
[2020-05-14] MEDS ORDERED: 0.9 % Sodium Chloride 1,000 ML IVC ONE (18:57)
[2020-05-14] MEDS ORDERED: 0.9 % Sodium Chloride 1,000 ML ONE (18:57)
[2020-05-14] MEDS ORDERED: Naloxone 0.4 MG/ML INJ IVP ONE (18:59)
[2020-05-14] MEDS ORDERED: 0.9 % Sodium Chloride 500 ML IV ONE (20:53)
[2020-05-15] MEDS: Potassium Chloride Elixir 20 MEQ/15 ML UDC PO SCH ×2 (09:27→19:16)
[2020-05-15] MEDS: Sulfamethoxazole/Trimeth DS 1 EACH TABLET PO SCH ×2 (09:27→19:16)
[2020-05-15] MEDS: polyethylene glycoL 3350 17 GM POWD.PACK PO SCH (09:27)
[2020-05-15] MEDS: Cyanocobalamin (B-12) 1,000 MCG TABLET PO SCH (09:27)
[2020-05-15] MEDS: Multivit/Ca/Min/Fe/FA 1 TAB TABLET PO SCH (09:27)
[2020-05-15] MEDS: *HR* Rivaroxaban 15 MG TABLET PO SCH ×2 (09:27→19:16)
[2020-05-15] MEDS: Budesonide Neb 0.5 MG/2 ML IH SCH ×2 (10:08→20:09)
[2020-05-15] MEDS: Ertapenem 1,000 MG in 0.9 % Sodium Chloride Mini Bag 100 ML IVPB SCH (13:48)
[2020-05-15] MEDS: Fluticasone Propionate Nasal 50 MCG/SPRAY BOTTLE NS SCH (13:49)
[2020-05-15] MEDS: *HR* FentaNYL PATCH 50 MCG PATCH TD SCH (19:32)
[2020-05-16] MEDS: Budesonide Neb 0.5 MG/2 ML IH SCH ×2 (07:35→20:54)
[2020-05-16 08:51] LABS: Hematocrit 37.3 % (37.5-50.1); Hemoglobin 12.9 g/dL (12.9-16.9); Mean Corpuscular HGB Conc 34.6 g/dL (31.6-35.5); Mean Corpuscular Volume 101.1 fL (83.0-100.0); Mean Platelet Volume 10.6 fL (9.4-12.4); Platelet Count 293 K/mcL (140-400); Red Blood Count 3.69 M/mcL (4.19-5.50); Red Cell Distribution Width 14.3 % (11.5-14.5); White Blood Count 6.6 K/mcL (4.3-11.1)
[2020-05-16 09:23] LABS: BUN/Creatinine Ratio 13 (6-26); Blood Urea Nitrogen 16 mg/dL (8-23); Carbon Dioxide 24 mEq/L (23-29); Chloride 106 mEq/L (98-107); Glucose 80 mg/dL (70-105); Osmolality,Calculated 288 (280-300); Potassium 3.8 mEq/L (3.5-5.1); Sodium 139 mEq/L (136-145); eGFR For African Americans > 60 (> 60); eGFR For Non-African Americans 57 (> 60)
[2020-05-16] MEDS ORDERED: *HR* FentaNYL PATCH 50 MCG PATCH TD ONE (09:43)
[2020-05-16] MEDS ORDERED: 0.9 % Sodium Chloride 1,000 ML IVC SCH (09:45)
[2020-05-16] MEDS: Multivit/Ca/Min/Fe/FA 1 TAB TABLET PO SCH (09:46)
[2020-05-16] MEDS: Potassium Chloride Elixir 20 MEQ/15 ML UDC PO SCH ×2 (09:46→21:13)
[2020-05-16] MEDS: polyethylene glycoL 3350 17 GM POWD.PACK PO SCH (09:46)
[2020-05-16] MEDS: Sulfamethoxazole/Trimeth DS 1 EACH TABLET PO SCH ×2 (09:47→20:37)
[2020-05-16] MEDS: Cyanocobalamin (B-12) 1,000 MCG TABLET PO SCH (09:47)
[2020-05-16] MEDS: *HR* Rivaroxaban 15 MG TABLET PO SCH ×2 (09:47→20:37)
[2020-05-16] MEDS: Fluticasone Propionate Nasal 50 MCG/SPRAY BOTTLE NS SCH (10:12)
[2020-05-16] MEDS ORDERED: *HR* FentaNYL PATCH 12 MCG PATCH TD SCH (14:15)
[2020-05-16] MEDS: Ertapenem 1,000 MG in 0.9 % Sodium Chloride Mini Bag 100 ML IVPB SCH (14:31)
[2020-05-16] MEDS: Ketoconazole Shampoo 120 ML BOTTLE TP SCH (20:38)
[2020-05-17] MEDS ORDERED: Albumin 25% 25gram/100mL 25 GM/100 ML IV.SOLN IVPB SCH (09:00)
[2020-05-17] MEDS: Budesonide Neb 0.5 MG/2 ML IH SCH ×2 (09:08→20:40)
[2020-05-17] MEDS: Multivit/Ca/Min/Fe/FA 1 TAB TABLET PO SCH ×2 (09:45→09:48)
[2020-05-17] MEDS: Sulfamethoxazole/Trimeth DS 1 EACH TABLET PO SCH ×3 (09:45→22:54)
[2020-05-17] MEDS: *HR* Rivaroxaban 15 MG TABLET PO SCH ×3 (09:45→22:54)
[2020-05-17] MEDS: Potassium Chloride Elixir 20 MEQ/15 ML UDC PO SCH ×3 (09:45→22:54)
[2020-05-17] MEDS: polyethylene glycoL 3350 17 GM POWD.PACK PO SCH ×2 (09:45→09:46)
[2020-05-17] MEDS: Cyanocobalamin (B-12) 1,000 MCG TABLET PO SCH ×2 (09:45→09:48)
[2020-05-17] MEDS: Fluticasone Propionate Nasal 50 MCG/SPRAY BOTTLE NS SCH (09:48)
[2020-05-17] MEDS: Albumin Human 5% 12.5 GM/250 ML IV.SOLN IVPB SCH ×2 (09:49→16:36)
[2020-05-18] MEDS: *HR* Rivaroxaban 15 MG TABLET PO SCH ×2 (09:07→22:59)
[2020-05-18] MEDS: Potassium Chloride Elixir 20 MEQ/15 ML UDC PO SCH ×2 (09:07→22:59)
[2020-05-18] MEDS: Sulfamethoxazole/Trimeth DS 1 EACH TABLET PO SCH ×2 (09:07→22:59)
[2020-05-18] MEDS: polyethylene glycoL 3350 17 GM POWD.PACK PO SCH (09:07)
[2020-05-18] MEDS: Cyanocobalamin (B-12) 1,000 MCG TABLET PO SCH (09:08)
[2020-05-18] MEDS: Multivit/Ca/Min/Fe/FA 1 TAB TABLET PO SCH (09:08)
[2020-05-18 09:20] LABS: Basophils # 0.1 K/mcL (0.0-0.2); Basophils % 0.8 %; Eosinophils # 0.2 K/mcL (0.0-0.6); Eosinophils % 1.6 %; Hematocrit 38.6 % (37.5-50.1); Hemoglobin 12.8 g/dL (12.9-16.9); Immature Granulocytes % 0.8 % (0-4); Lymphocytes # 1.4 K/mcL (0.6-4.6); Lymphocytes % 12.9 %; Mean Corpuscular HGB Conc 33.2 g/dL (31.6-35.5); Mean Corpuscular Hemoglobin 34.9 pg (28.0-33.3); Mean Corpuscular Volume 105.2 fL (83.0-100.0); Mean Platelet Volume 10.1 fL (9.4-12.4); Monocytes # 0.9 K/mcL (0.0-1.3); Monocytes % 8.2 %; Platelet Count 246 K/mcL (140-400); Red Blood Count 3.67 M/mcL (4.19-5.50); Red Cell Distribution Width 14.4 % (11.5-14.5); Segmented Neutrophils % 75.7 %; White Blood Count 10.5 K/mcL (4.3-11.1)
[2020-05-18] MEDS: Fluticasone Propionate Nasal 50 MCG/SPRAY BOTTLE NS SCH (09:22)
[2020-05-18] MEDS: Albuterol 2.5 MG/3 ML NEBULIZER IH PRN (09:29)
[2020-05-18] MEDS: Budesonide Neb 0.5 MG/2 ML IH SCH ×2 (09:29→20:56)
[2020-05-18 09:39] LABS: BUN/Creatinine Ratio 10 (6-26); Blood Urea Nitrogen 11 mg/dL (8-23); Calcium 8.2 mg/dL (8.6-10.3); Carbon Dioxide 20 mEq/L (23-29); Chloride 104 mEq/L (98-107); Glucose 84 mg/dL (70-105); Osmolality,Calculated 285 (280-300); Sodium 138 mEq/L (136-145); eGFR For African Americans > 60 (> 60); eGFR For Non-African Americans > 60 (> 60)
[2020-05-18] MEDS ORDERED: Artificial Tears SOLN 15 ML BOTTLE OP PRN (16:45)
[2020-05-19 06:46] VITALS: BP 92/66
[2020-05-19] MEDS: Budesonide Neb 0.5 MG/2 ML IH SCH (09:26)
[2020-05-19] MEDS: *HR* Rivaroxaban 15 MG TABLET PO SCH (09:58)
[2020-05-19] MEDS: Potassium Chloride Elixir 20 MEQ/15 ML UDC PO SCH (09:58)
[2020-05-19] MEDS: Cyanocobalamin (B-12) 1,000 MCG TABLET PO SCH (10:03)
[2020-05-19] MEDS: polyethylene glycoL 3350 17 GM POWD.PACK PO SCH (10:03)
[2020-05-19] MEDS: Fluticasone Propionate Nasal 50 MCG/SPRAY BOTTLE NS SCH (10:03)
[2020-05-19] MEDS: Multivit/Ca/Min/Fe/FA 1 TAB TABLET PO SCH (10:03)
[2020-05-30] MEDS ORDERED: *HR* Rivaroxaban 10 MG TABLET PO SCH (17:00)
== END 2020-05-19 14:00 | DRG 175 ==
LOC: INPPIK 22:10
PROVIDERS: ADMIT Family Medicine; ATTEND Family Medicine